=== PATIENT | female | born 2000 | race Caucasian/White ===

== ENCOUNTER 2021-08-01 23:52 | Observation (INO) ==
[2021-08-02] MEDS ORDERED: LORazepam 0.5 MG/1 ML VIAL IV STA ×2 (00:10→06:03)
[2021-08-02] MEDS ORDERED: SODIUM CHLORIDE 0.9% 1000ML 1,000 ML IV ONE (00:10)
[2021-08-02] MEDS ORDERED: FAMOTIDINE 20MG/5ML IV PUSH IV STA (00:10)
[2021-08-02] MEDS ORDERED: ONDANSETRON INJ 2 MG/ML 2 ML VIAL IV STA (00:10)
[2021-08-02] MEDS ORDERED: ACETAMINOPHEN 1,000 MG/100 ML VIAL IV STA (00:10)
--- NOTE | 2021-08-02 00:37 | Emergency Department Note ---
History of Present Illness General Chief complaint: Vomiting Stated complaint: VOMITTING, CANT KEEP ANYTHING DOWN, CROHNS DISEASE Time Seen by Provider: 08/01/21 23:57 Source: patient Mode of arrival: ambulatory Limitations: no limitations History of Present Illness Provider complaint: nausea and vomiting, abdominal pain Onset (ago): day(s) 2 Location: abdomen Radiation: non-radiation Maximum Pain Intensity: 7 Relieved By: + none Exacerbated By: + eating Associated symptoms: + loss of appetite, + malaise and + nausea/vomiting Treatments prior to arrival: none This is a 20-year-old female presents emergency department complaining of nausea and vomiting as well as abdominal pain. Patient states symptoms began on . She states she was seen and evaluated here on the , given medications and sent home. She states she use the Zofran she was given at home and still had continued intermittent vomiting. She states whenever she tries to sip clear liquids or breath, about 10 minutes later she vomits again. Patient denies any blood in the emesis. Patient states she did have a bowel movement today that wa s normal. No melena hematochezia. Patient denies fevers or chills. She admits to increased stress leading up to her symptoms. Denies any dietary change. Patient denies any known sick contact, fevers or chills. Patient states she only takes Bentyl for her Crohn's disease. She states she was originally diagnosed in high school and underwent EGD and colonoscopy. She does not routinely follow-up with GI. She states she also takes several medications for anxiety. She states she no longer has any Bentyl as her prescription had run out. Pt seen during a time of high acuity and national emergency pandemic while wearing PPE. Home Medications Medication Instructions Recorded Confirmed Type dextroamphetamine-amphetamine ER 20 mg PO DAILY PRN 02/21/21 08/02/21 History 20 mg 24hr capsule,extend release gabapentin 100 mg capsule See Rx Instructions .ROUTE .COMPLEX 02/21/21 08/02/21 History albuterol sulfate 90 mcg/actuation 2 inh INHALATION Q6H PRN #8.5 g 04/26/21 08/02/21 Rx aerosol inhaler levonorgestrel (Kyleena) 17.5 mcg INTRAUTERINE CONTINOUS 08/02/21 08/02/21 History venlafaxine 150 mg 150 mg PO DAILY 08/02/21 08/02/21 History capsule,extended release 24 hr venlafaxine 75 mg capsule,extended 75 mg PO DAILY 08/02/21 08/02/21 History release 24 hr ondansetron HCl 4 mg tablet 4 mg PO Q6H PRN 3 Days #10 tab 08/03/21 Rx Allergies Allergy/AdvReac Type Severity Reaction Status Date / Time No Known Allergies Allergy Verified 08/03/21 11:23 Past Med/Surg History Medical History (Updated 08/03/21 @ 11:48 by Zana Lim MD) Crohns disease Encounter for pre-operative examination Surgical History No pertinent past surgical history Family History Other No pertinent family history in first degree relatives Social History Smoking Status: Never smoker Hx Alcohol Use: Yes Alcohol type: beer Hx Substance Use: No Preferred Language: Polish Communication Ability: Effective Spool Cleaner Required: No Beliefs That Will Affect Care: None marital status: Single Current Living Situation: Alone Current Living Situation Comment: Roommate current occupational status: student Feels Safe at Home: Yes Assistive Devices: None Review of Systems A total of 10 systems reviewed and were otherwise negative All systems reviewed & are unremarkable except as noted in HPI & below Physical Exam Vital Signs Vital Signs - 24 hr 08/01/21 23:55 08/02/21 01:55 08/02/21 03:55 Temperature 36.5 C Temperature Source Temporal Artery Scan Pulse Rate 79 Pulse Rate [Finger] 77 81 Respiratory Rate 16 18 18 Respiratory Effort / Characteristics Blood Pressure 108/74 Blood Pressure [Left Arm] 112/67 94/60 L Blood Pressure Mean 85 Blood Pressure Mean [Left Arm] 82 71 Blood Pressure Position Sitting Blood Pressure Position [Left Arm] Sitting Pulse Oximetry 99 99 Oxygen Delivery Method Room Air Room Air Sepsis Recent Fever Within 48 Hours No Sepsis New/Unexplained Change in Mental Status No Sepsis Action Taken by Nursing No Action Required 08/02/21 05:55 08/02/21 07:08 08/02/21 09:00 Temperature Temperature Source Pulse Rate Pulse Rate [Finger] 53 L 58 L 48 L Respiratory Rate 18 16 16 Respiratory Effort / Characteristics Non-Labored Spontaneous Non-Labored Spontaneous Blood Pressure Blood Pressure [Left Arm] 111/63 111/63 Blood Pressure Mean Blood Pressure Mean [Left Arm] 79 79 Blood Pressure Position Blood Pressure Position [Left Arm] Pulse Oximetry 99 98 98 Oxygen Delivery Method Room Air Room Air Room Air Sepsis Recent Fever Within 48 Hours Sepsis New/Unexplained Change in Mental Status Sepsis Action Taken by Nursing GENERAL: alert, anxious appearing, well nourished, no distress, non-toxic, sitting with knees pulled into chest EYE EXAM: normal conjunctiva, PERRL and EOM's grossly intact OROPHARYNX: no exudate, no erythema, lips, buccal mucosa, and tongue normal and mucous membranes are moist NECK: supple, no nuchal rigidity, no adenopathy, non-tender LUNGS: Clear to auscultation. Normal chest wall mechanics, no w/r/r HEART: no murmurs, S1 normal and S2 normal ABDOMEN: abdomen soft, non-tender, normo-active bowel sounds, no masses, no rebound or guarding. BACK: Back is symmetrical on inspection and there is no deformity, no midline tenderness, no CVA tenderness. SKIN: no rashes and no bruising UPPER EXTREMITIES: upper extremities are grossly normal. FROM, nml pulses b/l. LOWER EXTREMITIES: No pitting edema. FROM, nml pulses b/l. NEURO EXAM: Normal sensorium, cranial nerves II-XII grossly intact, normal speech, no gross weakness of arms, no gross weakness of legs. Gross sensation intact. Course Course 0130: Patient states she still feels nauseated and anxious and still having abdominal pain. 0435: Patient states pain is improved but she is still nauseated, however would like to try something by mouth. 0515: Patient had recurrent vomiting. Given additional medication. 0711: Patient states she still nauseated but feels it is secondary to GERD and she feels some burning in her upper abdomen up into her chest. We will try additional medication and then p.o. challenge. 0752: Patient with recurrent vomiting here. I did discuss with her additional imaging at this point given intractable nausea vomiting and need for additional inpatient management. Administered Medications Discontinued Medications Al Hydrox/Mg Hydrox/Simethicone (Aluminum/Magnesium Susp 30 Ml Udc) 15 ml PO NOW STA Stop: 08/02/21 07:00 Last Admin: 08/02/21 07:16 Dose: 15 ml Documented by: [id number] Dicyclomine HCl (Dicyclomine Hcl 10 Mg/Ml 2 Ml Amp/Vial) 20 mg IM NOW ONE Stop: 08/02/21 01:35 Last Admin: 08/02/21 01:48 Dose: 20 mg Documented by: [id number] Diphenhydramine HCl (Diphenhydramine 50 Mg/Ml Vial) 25 mg IV NOW STA Stop: 08/02/21 01:35 Last Admin: 08/02/21 01:47 Dose: 25 mg Documented by: [id number] Famotidine (Famotidine 20mg/5ml Iv Push) 20 mg IV ONE STA Stop: 08/02/21 00:11 Last Admin: 08/02/21 00:30 Dose: 20 mg Documented by: [id number] Hydroxyzine HCl (Hydroxyzine Hcl 10 Mg Tab) 10 mg PO Q6H PRN PRN Reason: Anxiety Stop: 09/01/21 17:23 Last Admin: 08/02/21 23:21 Dose: 10 mg Documented by: [id number] Admin: 08/02/21 18:20 Dose: 10 mg Documented by: [id number] Sodium Chloride (Nss 1000ml) 1,000 mls @ 999 mls/hr IV .Q1H1M ONE Stop: 08/02/21 01:10 Last Infusion: 08/02/21 01:43 Dose: 0 mls/hr Documented by: [id number] Admin: 08/02/21 00:30 Dose: 999 mls/hr Documented by: [id number] Acetaminophen (Ofirmev) 1,000 mg in 100 mls @ 400 mls/hr IV NOW STA Stop: 08/02/21 00:24 Last Infusion: 08/02/21 00:46 Dose: 0 mls/hr Documented by: [id number] Admin: 08/02/21 00:29 Dose: 400 mls/hr Documented by: [id number] Lorazepam (Ativan) 0.5 mg in 1 mls @ 1 mls/min IV NOW STA Stop: 08/02/21 00:11 Last Admin: 08/02/21 00:29 Dose: 1 mls/min Documented by: [id number] Lactated Ringer's (Lr) 1,000 mls @ 999 mls/hr IV .Q1H1M ONE Stop: 08/02/21 02:12 Last Infusion: 08/02/21 03:02 Dose: 0 mls/hr Documented by: [id number] Admin: 08/02/21 01:48 Dose: 999 mls/hr Documented by: [id number] Lorazepam (Ativan) 0.5 mg in 1 mls @ 1 mls/min IV NOW STA Stop: 08/02/21 06:04 Last Admin: 08/02/21 06:35 Dose: 1 mls/min Documented by: [id number] Dextrose/Sodium Chloride (D5w And 1/2nss) 1,000 mls @ 100 mls/hr IV .Q10H JOSE Stop: 09/01/21 08:44 Last Infusion: 08/03/21 13:12 Dose: 0 mls/hr Documented by: [id number] Infusion: 08/03/21 11:15 Dose: 0 mls/hr Documented by: [id number] Admin: 08/03/21 01:56 Dose: 100 mls/hr Documented by: [id number] Infusion: 08/03/21 01:56 Dose: 0 mls/hr Documented by: [id number] Admin: 08/02/21 17:23 Dose: 100 mls/hr Documented by: [id number] Infusion: 08/02/21 16:13 Dose: 0 mls/hr Documented by: [id number] Admin: 08/02/21 09:07 Dose: 125 mls/hr Documented by: [id number] Pantoprazole Sodium 40 mg/ (Syringe) 10 mls @ 5 mls/min IV BID JOSE Stop: 09/01/21 20:59 Last Admin: 08/03/21 08:30 Dose: 5 mls/min Documented by: [id number] Admin: 08/02/21 23:22 Dose: 5 mls/min Documented by: [id number] Ioversol (Optiray 320 100ml) 94 ml IV ONCE ONE Stop: 08/02/21 08:18 Last Admin: 08/02/21 08:18 Dose: 94 ml Documented by: [id number] Lidocaine HCl (Lidocaine 2% 2 Ml Vial/Amp(20mg/Ml)) Confirm Administered Dose 4 ml INFIL .STK-MED ONE Stop: 08/03/21 11:48 Last Admin: 08/03/21 13:12 Dose: Not Given Documented by: [id number] Metoclopramide HCl (Metoclopramide Hcl Inj 5 Mg/Ml 2 Ml Vial) 5 mg IV ONE ONE Stop: 08/02/21 01:35 Last Admin: 08/02/21 01:48 Dose: 5 mg Documented by: [id number] Metoclopramide HCl (Metoclopramide Hcl Inj 5 Mg/Ml 2 Ml Vial) 5 mg IV ONE ONE Stop: 08/02/21 07:54 Last Admin: 08/02/21 08:04 Dose: 5 mg Documented by: [id number] Metoclopramide HCl (Metoclopramide Hcl Inj 5 Mg/Ml 2 Ml Vial) 5 mg IV Q6H PRN PRN Reason: Vomiting Stop: 09/01/21 10:29 Last Admin: 08/02/21 23:22 Dose: 5 mg Documented by: [id number] Admin: 08/02/21 18:49 Dose: 5 mg Documented by: [id number] Midazolam HCl (Midazolam Hcl 1 Mg/Ml 2ml Vial) Confirm Administered Dose 2 mg .ROUTE .STYurbuds-MED ONE Stop: 08/03/21 11:54 Last Admin: 08/03/21 13:12 Dose: Not Given Documented by: [id number] Ondansetron HCl (Ondansetron Inj 2 Mg/Ml 2 Ml Vial) 4 mg IV NOW STA Stop: 08/02/21 00:11 Last Admin: 08/02/21 00:29 Dose: 4 mg Documented by: [id number] Ondansetron HCl (Ondansetron Inj 2 Mg/Ml 2 Ml Vial) 4 mg IV Q6H PRN PRN Reason: Nausea Stop: 09/01/21 10:11 Last Admin: 08/02/21 22:25 Dose: 4 mg Documented by: [id number] Admin: 08/02/21 16:13 Dose: 4 mg Documented by: [id number] Propofol (Propofol Iv Emulsion 10 Mg/Ml 20 Ml Vial) Confirm Administered Dose 200 mg IV .STK-MED ONE Stop: 08/03/21 11:48 Last Admin: 08/03/21 13:12 Dose: Not Given Documented by: [id number] Venlafaxine HCl (Venlafaxine Hcl Xr 75 Mg Capxr) 75 mg PO DAILY OJSE Stop: 09/02/21 08:59 Last Admin: 08/03/21 13:06 Dose: 75 mg Documented by: [id number] Venlafaxine HCl (Venlafaxine Hcl Xr 150 Mg Capxr) 150 mg PO DAILY JOSE Stop: 09/02/21 08:59 Last Admin: 08/03/21 13:06 Dose: 150 mg Documented by: [id number] Medical Decision Making Differential Diagnosis Differential: Gastroenteritis, Food Borne, Esophageal Perforation, , Electrolyte Abnormality, Dehydration, Intraabdominal Infection, UTI/Pyelonephritis, Bowel Obstruction, Biliary Pathology, amongst other pathology entertained. Medical Records Attestation: I reviewed the patient's medical records. Home Medications Current Medication List: was personally reviewed by me Laboratory Data Attestation: I reviewed the patient's lab results. Result diagrams: 08/03/21 05:36 08/03/21 05:36 Lab Results 08/02/21 08/02/21 08/02/21 Range/Units 00:40 00:40 00:40 WBC 6.41 (4.8-10.8) K/uL RBC 4.42 (4.2-5.4) M/uL Hgb 14.5 (12.0-16.0) g/dL Hct 43.3 (37-47) % MCV 98.0 (80-100) fL MCH 32.8 (25-34) pg MCHC 33.5 (32-36) g/dL RDW Std Deviation 44.7 (36.4-46.3) fL RDW Coeff of Brigitte 12.4 (11.5-14.5) % Plt Count 247 (130-400) K/uL MPV 10.9 H (7.4-10.4) fL Immature Gran % (Auto) 0.0 % Neut % (Auto) 50.8 % Lymph % (Auto) 41.2 % Dade % (Auto) 5.0 % Eos % (Auto) 2.8 % Baso % (Auto) 0.2 % Neut # (Auto) 3.26 (1.4-6.5) K/uL Lymph # (Auto) 2.64 (1.2-3.4) K/uL Dade # (Auto) 0.32 (0.11-0.59) K/uL Eos # (Auto) 0.18 (0-0.5) K/uL Baso # (Auto) 0.01 (0-0.2) K/uL Immature Gran # (Auto) 0.00 (0.00-0.02) K/uL ESR (0-20) mm/hr Sodium 138 (136-145) mmol/L Potassium 3.8 (3.5-5.1) mmol/L Chloride 106 (98-107) mmol/L Carbon Dioxide 23 (21-32) mmol/L Anion Gap 9 (3-11) BUN 5 L (6-23) mg/dl Creatinine 0.69 (0.6-1.2) mg/dl Est Cr Clr Drug Dosing 118.1 ml/min Est GFR ( Amer) 145.2 ml/min Est GFR (Non-Af Amer) 125.3 ml/min BUN/Creatinine Ratio 7.2 L (10-20) Glucose 87 (70-99(Fasting)) mg/dl Calcium 9.4 (8.5-10.1) mg/dl Magnesium 2.3 (1.7-2.4) mg/dl Total Bilirubin 0.9 D (0.2-1.0) mg/dl AST 19 (13-39) U/L ALT 12 (7-52) U/L Alkaline Phosphatase 59 (34-104) U/L C-Reactive Protein (0-0.5) mg/dl Total Protein 7.1 (6.0-8.3) gm/dl Albumin 4.6 (3.4-5.0) gm/dl Globulin 2.5 (2.5-4.0) gm/dl Albumin/Globulin Ratio 1.8 (0.9-2) Lipase 12 (11-82) U/L HCG, Qual Negative (Negative) 08/02/21 08/02/21 Range/Units 00:40 00:40 WBC (4.8-10.8) K/uL RBC (4.2-5.4) M/uL Hgb (12.0-16.0) g/dL Hct (37-47) % MCV (80-100) fL MCH (25-34) pg MCHC (32-36) g/dL RDW Std Deviation (36.4-46.3) fL RDW Coeff of Brigitte (11.5-14.5) % Plt Count (130-400) K/uL MPV (7.4-10.4) fL Immature Gran % (Auto) % Neut % (Auto) % Lymph % (Auto) % Dade % (Auto) % Eos % (Auto) % Baso % (Auto) % Neut # (Auto) (1.4-6.5) K/uL Lymph # (Auto) (1.2-3.4) K/uL Dade # (Auto) (0.11-0.59) K/uL Eos # (Auto) (0-0.5) K/uL Baso # (Auto) (0-0.2) K/uL Immature Gran # (Auto) (0.00-0.02) K/uL ESR 8 (0-20) mm/hr Sodium (136-145) mmol/L Potassium (3.5-5.1) mmol/L Chloride (98-107) mmol/L Carbon Dioxide (21-32) mmol/L Anion Gap (3-11) BUN (6-23) mg/dl Creatinine (0.6-1.2) mg/dl Est Cr Clr Drug Dosing ml/min Est GFR ( Amer) ml/min Est GFR (Non-Af Amer) ml/min BUN/Creatinine Ratio (10-20) Glucose (70-99(Fasting)) mg/dl Calcium (8.5-10.1) mg/dl Magnesium (1.7-2.4) mg/dl Total Bilirubin (0.2-1.0) mg/dl AST (13-39) U/L ALT (7-52) U/L Alkaline Phosphatase (34-104) U/L C-Reactive Protein < 0.50 (0-0.5) mg/dl Total Protein (6.0-8.3) gm/dl Albumin (3.4-5.0) gm/dl Globulin (2.5-4.0) gm/dl Albumin/Globulin Ratio (0.9-2) Lipase (11-82) U/L HCG, Qual (Negative) Imaging Data Radiologist's Impression: Abdomen/Pelvis CT 08/02/21 07:[address] WITH IV CONTRAST CT DOSE: 269.02 mGy.cm HISTORY: Acute nausea with vomiting intractable n/v TECHNIQUE: Multiaxial CT images of the abdomen and pelvis were performed f ollowing the IV administration of 94 cc of Optiray, A dose lowering technique was utilized adhering to the principles of ALARA. COMPARISON STUDY: CT abdomen and pelvis 07/31/2021 FINDINGS: Pectus excavatum causes mass effect upon the heart. Clear lung bases. No pneumatosis or pneumoperitoneum. The spleen, pancreas, gallbladder, adrenal glands and liver appear unremarkable. Patency of the hepatic and portal veins. Unremarkable kidneys. No hydronephrosis. Moderate bladder wall thickening with perivesicular stranding. IUD of the mid uterus. Follicular changes of the ovaries. Small to moderate free pelvic fluid. 1.6 cm peripherally enhancing cy stic structure is noted involving the left aspect of the vaginal introitus. Aorta and IVC are unremarkable. No adenopathy No bowel obstruction. The appendix appears noninflamed. No bowel wall thickening. Unremarkable soft tissues. Tiny posterior disc osteophyte complex at L5-S1. Mild lumbar levoscoliosis. There is no acute fracture. IMPRESSION: 1. No bowel obstruction or bowel wall thickening. Normal appendix. 2. Urinary bladder wall thickening with perivesicular stranding. Correlate with urinalysis to exclude cystitis. 3. 1.6 cm cystic structure involving the left aspect of the vaginal introitus is suggestive of a Bartholin's gland cyst. 4. Small to moderate free pelvic fluid, likely physiologic. ACT 112: Negative or not required by law. The above report was generated using voice recognition software. It may contain grammatical, syntax or spelling errors. Electronically signed by: Woody Licona M.D. 08/02/2021 8:40 AM MDM Narrative An order was placed for continuous cardiac monitoring. The monitor shows a rate of _92_ with _nsr_ rhythm. Patient has no family history of IBD. Patient was first seen and observation began at 2357 and was necessary in order to determine etiology of symptoms and treat nausea with multiple medications. Upon re-evaluation, 7 hours of observation revealed that the patient should be admitted. Discharge time at 0722. Patient presents with recurrent n/v after being evaluated here prior and discharged. Patient very anxious which I feel was contributing to her symptoms but does have a hx of IBS/Crohn's which is mild and well controlled. No immunomodulating medications, prn bentyl. Patient afebrile, VS stable. Labs reassuring. Patient given 2 L IVF and multiple medications for nausea and with each po trial patient had recurrent vomiting. Abd pain resolved with bentyl. Patient eventually sent for CT imaging which was reassuring. Case discussed with hospitalist due to intractable vomiting. Patient didn't provide urine while in the ER to r/o cannabis induced hyperemesis. I do not suspect Crohns flare. NO other evidence of acute pathology. Impression & Plan Nausea & vomiting, Abdominal pain, acute Discharge Plan Visit Data Chief Complaint: Vomiting Stated Complaint: VOMITTING, CANT KEEP ANYTHING DOWN, CROHNS DISEASE ED Provider: Leatha Gonzales Discharge Problem: Nausea & vomiting, Abdominal pain, acute Patient Disposition: Admitted As Inpatient Discharge Instructions Interventions: ED Discharge Assessment Last Done: 08/02/21 11:33 Discharge Problem: Nausea & vomiting Qualifiers: Vomiting type: unspecified Qualified Code(s): R11.2 - Nausea with vomiting, unspecified
[2021-08-02 00:48] LABS: Basophils # (auto) 0.01 K/uL (0-0.2); Basophils % (auto) 0.2 %; Eosinophils # (auto) 0.18 K/uL (0-0.5); Eosinophils % (auto) 2.8 %; Hematocrit (blood only) 43.3 % (37-47); Hemoglobin 14.5 g/dL (12.0-16.0); Lymphocytes # (auto) 2.64 K/uL (1.2-3.4); Lymphocytes % (auto) 41.2 %; Mean Corpuscular Hemoglobin 32.8 pg (25-34); Mean Corpuscular Hgb Conc 33.5 g/dL (32-36); Mean Platelet Volume 10.9 fL (7.4-10.4); Monocytes # (auto) 0.32 K/uL (0.11-0.59); Neutrophils # (auto) 3.26 K/uL (1.4-6.5); Neutrophils % (auto) 50.8 %; Platelet Count 247 K/uL (130-400); RDW Coefficient of Variation 12.4 % (11.5-14.5); RDW Standard Deviation 44.7 fL (36.4-46.3); Red Blood Count 4.42 M/uL (4.2-5.4); White Blood Count 6.41 K/uL (4.8-10.8)
[2021-08-02 01:10] LABS: Albumin Globulin Ratio 1.8 (0.9-2); Albumin Level 4.6 gm/dl (3.4-5.0); BUN Creatinine Ratio 7.2 (10-20); Bilirubin,Total 0.9 mg/dl (0.2-1.0); Calcium 9.4 mg/dl (8.5-10.1); Creatinine Clr Calc Pharmacy 118.1 ml/min; Est GFR (African American) 145.2 ml/min; Est GFR (Non-African American) 125.3 ml/min; Globulin 2.5 gm/dl (2.5-4.0); Magnesium 2.3 mg/dl (1.7-2.4); Potassium 3.8 mmol/L (3.5-5.1); Total Protein 7.1 gm/dl (6.0-8.3)
[2021-08-02] MEDS ORDERED: LACTATED RINGER'S 1,000 ML IV ONE (01:12)
[2021-08-02 01:17] LABS: Pregnancy Test, Serum Negative (Negative)
[2021-08-02] MEDS ORDERED: diphenhydrAMINE 50 MG/ML VIAL IV STA (01:34)
[2021-08-02] MEDS ORDERED: METOCLOPRAMIDE HCL INJ 5 MG/ML 2 ML VIAL IV ONE ×2 (01:34→07:53)
[2021-08-02] MEDS ORDERED: DICYCLOMINE HCL 10 MG/ML 2 ML AMP/VIAL IM ONE (01:34)
[2021-08-02] MEDS ORDERED: ALUMINUM/MAGNESIUM SUSP 30 ML UDC PO STA (06:59)
[2021-08-02] MEDS ORDERED: OPTIRAY 320 100ml IV ONE (08:17)
--- NOTE | 2021-08-02 08:42 | CT Scan Report ---
ABDOMEN AND PELVIS CT WITH IV CONTRAST CT DOSE: 269.02 mGy.cm HISTORY: Acute nausea with vomiting intractable n/v TECHNIQUE: Multiaxial CT images of the abdomen and pelvis were performed following the IV administrat ion of 94 cc of Optiray, A dose lowering technique was utilized adhering to the principles of ALARA. COMPARISON STUDY: CT abdomen and pelvis 07/31/2021 FINDINGS: Pectus excavatum causes mass effect upon the heart. Clear lung bases. No pneumatosis or pne umoperitoneum. The spleen, pancreas, gallbladder, adrenal glands and liver appear unremarkable. Paten cy of the hepatic and portal veins. Unremarkable kidneys. No hydronephrosis. Moderate bladder wall th ickening with perivesicular stranding. IUD of the mid uterus. Follicular changes of the ovaries. Smal l to moderate free pelvic fluid. 1.6 cm peripherally enhancing cystic structure is noted involving th e left aspect of the vaginal introitus. Aorta and IVC are unremarkable. No adenopathy No bowel obstruction. The appendix appears noninflamed. No bowel wall thickening. Unremarkable soft t issues. Tiny posterior disc osteophyte complex at L5-S1. Mild lumbar levoscoliosis. There is no acute fracture. IMPRESSION: 1. No bowel obstruction or bowel wall thickening. Normal appendix. 2. Urinary bladder wall thickening with perivesicular stranding. Correlate with urinalysis to exclude cystitis. 3. 1.6 cm cystic structure involving the left aspect of the vaginal introitus is suggestive of a Bill holin's gland cyst. 4. Small to moderate free pelvic fluid, likely physiologic. ACT 112: Negative or not required by law. The above report was generated using voice recognition software. It may contain grammatical, syntax o r spelling errors. Electronically signed by: Woody Licona M.D. 08/02/2021 8:40 AM
[2021-08-02] MEDS: D5W AND 1/2NSS 1,000 ML IV SCH ×2 (09:07→17:23)
[2021-08-02] MEDS ORDERED: MAGNESIUM HYDROXIDE SUSP 30 ML UDC PO PRN (10:12)
[2021-08-02] MEDS ORDERED: ALUMINUM/MAGNESIUM SUSP 30 ML UDC PO PRN (10:12)
[2021-08-02] MEDS ORDERED: ACETAMINOPHEN 325 MG TAB PO PRN (10:12)
[2021-08-02] MEDS ORDERED: POLYETHYLENE (MIRALAX) 17 GM PACK PO PRN (10:12)
--- NOTE | 2021-08-02 10:30 | Medical Student H&P ---
Date of Service August 02, 2021 Assessment & Plan (1) Nausea & vomiting: Plan: This is a 20 year old female with a history of Crohn's disease presenting for evaluation of a 4-day history of intractable vomiting in the setting of recent weight loss. Vomiting - Crohn's flare vs viral gastroenteritis - mIVF (D5 in 1/2 NSS) - nausea and pain control: tylenol, zofran, metoclopramide PRN - CT abdomen unremarkable except for urinary wall thickening with perivesicular stranding, WBC normal, CRP and ESR wnl, UA: pH 8, high specific gravity, negative nitrites, 2+ leuk esterase, WBC > 30, epithelial cells > 30, urine cx pending, but no urinary symptoms - negative HCG, UDS negative - GI consulted: protonix 40 mg BID, planning for EGD tomorrow, liquid diet today and NPO after midnight, requesting records from previous GI work-up FEN/GI: D5 in 1/2NSS at 100 mL/hr, clear fluids Dispo: med/surg Code status: full code DVT Prophylaxis: not indicated Vomiting type: unspecified Qualified Code(s): R11.2 - Nausea with vomiting, unspecified (2) Abdominal pain, acute: (3) History of Crohn's disease: Admission and Anticipated Discharge Date Admission Date: 08/02/2021 History of Present Illness Chief Complaint: Throwing up since Primary Care Provider: [facility] Patient is a 20 year old female with a history of Crohn's disease who presents for a 2-3 week history of progressively worsening nausea and vomiting who has not been able to keep any food or drink down for the last 4 days. She presented to the ED on Monday 07/31 with abdominal pain and nausea that improved to the point that she could tolerate clear liquids. She was discharged on zofran with instructions to advance her diet as tolerate but returned because the vomiting worsened again and she could keep down neither zofran nor food.The vomit sometimes has bright red blood in it, and she endorses throat pain. She has also been having intermittent abdominal pain. She says that her bowel movements have been normal in frequency and consistency. She has lost about 15 pounds in the last two weeks and attributes it to poor PO intake because of the vomiting. She has not had a Crohn's flare up for about 4 years but says that this is consistent with those flare-ups. Shay says that she was first diagnosed with Crohn's in high school after several long hospitalizations. She does not follow with GI and is prescribed only Bentyl, which her PCP manages. She last saw her PCP last summer and says that she has not been taking the Bentyl recently. She says that she does not thinks she's ever taken any other medications like steroids or mesalamine but is not sure because her mother managed her care when she was first diagnosed as a teenager. Denies fevers, chills, back pain, urinary symptoms. Denies recent travel or sick contacts. Denies recent marijuana usage (per patient, last usage was 3 years ago). Patient is a premed college oli and endorses having a lot of stress in her life. Allergies Allergy/AdvReac Type Severity Reaction Status Date / Time No Known Allergies Allergy Verified 08/02/21 00:32 Home Medications Medication Instructions Recorded Confirmed Type dextroamphetamine-amphetamine ER 20 mg PO DAILY PRN 02/21/21 08/02/21 History 20 mg 24hr capsule,extend release gabapentin 100 mg capsule See Rx Instructions .ROUTE .COMPLEX 02/21/21 08/02/21 History albuterol sulfate 90 mcg/actuation 2 inh INHALATION Q6H PRN #8.5 g 04/26/21 08/02/21 Rx aerosol inhaler levonorgestrel (Kyleena) 17.5 mcg INTRAUTERINE CONTINOUS 08/02/21 08/02/21 Hi story venlafaxine 150 mg 150 mg PO DAILY 08/02/21 08/02/21 History capsule,extended release 24 hr venlafaxine 75 mg capsule,extended 75 mg PO DAILY 08/02/21 08/02/21 History release 24 hr Past Med/Surg History Medical History Crohns disease Surgical History No pertinent past surgical history Family History Other No pertinent family history in first degree relatives Social History Smoking Status: Never smoker Preferred Language: [place] marital status: Single Current Living Situation: Other Current Living Situation Comment: Roommate current occupational status: student Feels Safe at Home: Yes Review of Systems per HPI Physical Exam Constitutional: no acute distress Eyes: PERRL, conjunctivae normal, anicteric sclerae ENMT: external ear and nose normal, oropharynx normal Mouth: + dry oral mucous membranes Neck: trachea midline, no thyromegaly Respiratory: normal respiratory effort, lungs clear to auscultation Cardiovascular: RRR, no murmur, no edema Gastrointestinal (Abdomen): Inspection/Auscultation: + hypoactive bowel sounds; abdomen not distended Percussion/Palpation: + abdomen tender (diffusely tender), + guarding (voluntary) and abdomen soft no rebound tenderness, no peritoneal signs, no CVA tenderness Psychiatric: A+Ox3, euthymic affect Results & Data ([facility]) Vital Signs (Past 12 Hours) Vital Signs Temp Pulse Pulse Resp BP BP Pulse Ox 08/02/21 09:00 48 L 16 98 08/02/21 07:08 58 L 16 111/63 98 08/02/21 05:55 53 L 18 111/63 99 08/02/21 03:55 81 18 94/60 L 99 08/02/21 01:55 77 18 112/67 08/01/21 23:55 36.5 C 79 16 108/74 99 Laboratory Results 08/02/21 08/02/21 08/02/21 Range/Units Unknown 00:40 00:40 WBC (4.8-10.8) K/uL RBC (4.2-5.4) M/uL Hgb (12.0-16.0) g/dL Hct (37-47) % MCV (80-100) fL MCH (25-34) pg MCHC (32-36) g/dL RDW Std Deviation (36.4-46.3) fL RDW Coeff of Brigitte (11.5-14.5) % Plt Count (130-400) K/uL MPV (7.4-10.4) fL Immature Gran % (Auto) % Neut % (Auto) % Lymph % (Auto) % [place] % (Auto) % Eos % (Auto) % Baso % (Auto) % Neut # (Auto) (1.4-6.5) K/uL Lymph # (Auto) (1.2-3.4) K/uL [place] # (Auto) (0.11-0.59) K/uL Eos # (Auto) (0-0.5) K/uL Baso # (Auto) (0-0.2) K/uL Immature Gran # (Auto) (0.00-0.02) K/uL ESR 8 (0-20) mm/hr Sodium (136-145) mmol/L Potassium (3.5-5.1) mmol/L Chloride (98-107) mmol/L Carbon Dioxide (21-32) mmol/L Anion Gap (3-11) BUN (6-23) mg/dl Creatinine (0.6-1.2) mg/dl Est Cr Clr Drug Dosing ml/min Est GFR ( Amer) ml/min Est GFR (Non-Af Amer) ml/min BUN/Creatinine Ratio (10-20) Glucose (70-99(Fasting)) mg/dl Calcium (8.5-10.1) mg/dl Magnesium (1.7-2.4) mg/dl Total Bilirubin (0.2-1.0) mg/dl AST (13-39) U/L ALT (7-52) U/L Alkaline Phosphatase (34-104) U/L C-Reactive Protein < 0.50 (0-0.5) mg/dl Total Protein (6.0-8.3) gm/dl Albumin (3.4-5.0) gm/dl Globulin (2.5-4.0) gm/dl Albumin/Globulin Ratio (0.9-2) Lipase (11-82) U/L HCG, Qual (Negative) SARS-CoV-2, RNA, NAAT NEGATIVE (NEGATIVE) 08/02/21 08/02/21 08/02/21 Range/Units 00:40 00:40 00:40 WBC 6.41 (4.8-10.8) K/uL RBC 4.42 (4.2-5.4) M/uL Hgb 14.5 (12.0-16.0) g/dL Hct 43.3 (37-47) % MCV 98.0 (80-100) fL MCH 32.8 (25-34) pg MCHC 33.5 (32-36) g/dL RDW Std Deviation 44.7 (36.4-46.3) fL RDW Coeff of Brigitte 12.4 (11.5-14.5) % Plt Count 247 (130-400) K/uL MPV 10.9 H (7.4-10.4) fL Immature Gran % (Auto) 0.0 % Neut % (Auto) 50.8 % Lymph % (Auto) 41.2 % [place] % (Auto) 5.0 % Eos % (Auto) 2.8 % Baso % (Auto) 0.2 % Neut # (Auto) 3.26 (1.4-6.5) K/uL Lymph # (Auto) 2.64 (1.2-3.4) K/uL [place] # (Auto) 0.32 (0.11-0.59) K/uL Eos # (Auto) 0.18 (0-0.5) K/uL Baso # (Auto) 0.01 (0-0.2) K/uL Immature Gran # (Auto) 0.00 (0.00-0.02) K/uL ESR (0-20) mm/hr Sodium 138 (136-145) mmol/L Potassium 3.8 (3.5-5.1) mmol/L Chloride 106 (98-107) mmol/L Carbon Dioxide 23 (21-32) mmol/L Anion Gap 9 (3-11) BUN 5 L (6-23) mg/dl Creatinine 0.69 (0.6-1.2) mg/dl Est Cr Clr Drug Dosing 118.1 ml/min Est GFR ( Amer) 145.2 ml/min Est GFR (Non-Af Amer) 125.3 ml/min BUN/Creatinine Ratio 7.2 L (10-20) Glucose 87 (70-99(Fasting)) mg/dl Calcium 9.4 (8.5-10.1) mg/dl Magnesium 2.3 (1.7-2.4) mg/dl Total Bilirubin 0.9 D (0.2-1.0) mg/dl AST 19 (13-39) U/L ALT 12 (7-52) U/L Alkaline Phosphatase 59 (34-104) U/L C-Reactive Protein (0-0.5) mg/dl Total Protein 7.1 (6.0-8.3) gm/dl Albumin 4.6 (3.4-5.0) gm/dl Globulin 2.5 (2.5-4.0) gm/dl Albumin/Globulin Ratio 1.8 (0.9-2) Lipase 12 (11-82) U/L HCG, Qual Negative (Negative) SARS-CoV-2, RNA, NAAT (NEGATIVE) Diagnostic Findings Abdomen/Pelvis CT 08/02/21 07:[address] WITH IV CONTRAST CT DOSE: 269.02 mGy.cm HISTORY: Acute nausea with vomiting intractable n/v TECHNIQUE: Multiaxial CT images of the abdomen and pelvis were performed following the IV administration of 94 cc of Optiray, A dose lowering technique was utilized adhering to the principles of ALARA. COMPARISON STUDY: CT abdomen and pelvis 07/31/2021 FINDINGS: Pectus excavatum causes mass effect upon the heart. Clear lung bases. No pneumatosis or pneumoperitoneum. The spleen, pancreas, gallbladder, adrenal glands and liver appear unremarkable. Patency of the hepatic and portal veins. Unremarkable kidneys. No hydronephrosis. Moderate bladder wall thickening with perivesicular stranding. IUD of the mid uterus. Follicular changes of the ovaries. Small to moderate free pelvic fluid. 1.6 cm peripherally enhancing cystic structure is noted involving the left aspect of the vaginal introitus. Aorta and IVC are unremarkable. No adenopathy No bowel obstruction. The appendix appears noninflamed. No bowel wall thickening. Unremarkable soft tissues. Tiny posterior disc osteophyte complex at L5-S1. Mild lumbar levoscoliosis. There is no acute fracture. IMPRESSION: 1. No bowel obstruction or bowel wall thickening. Normal appendix. 2. Urinary bladder wall thickening with perivesicular stranding. Correlate with urinalysis to exclude cystitis. 3. 1.6 cm cystic structure involving the left aspect of the vaginal introitus is suggestive of a Bartholin's gland cyst. 4. Small to moderate free pelvic fluid, likely physiologic. ACT 112: Negative or not required by law. The above report was generated using voice recognition software. It may contain grammatical, syntax or spelling errors. Electronically signed by: Woody Licona M.D. 08/02/2021 8:40 AM Code Status & VTE Plan Code Status Full code VTE Prophylaxis Plan VTE Prophylaxis will be ordered: No Reason for no VTE drug order: Treatment not indicated Reason for no VTE mechanical prophylaxis: Treatment not indicated Supervising Attestation I also saw the patient concurrent with the resident physician and the medical student and confirmed clements portions of the history and the physical examination. Pleasant 20-year-old female with reported history of Crohn's diagnosed in high school presents to the emergency department with an approximately 2-week history of progressive nausea and vomiting accounting for a 15 pound weight loss. The patient does not recall the details of her diagnostic work-up which led to the diagnosis of Crohn's -she does not recall having a colonoscopy but does describe an upper endoscopy-and she is on no medications currently for Crohn's. The p jm does report being on Bentyl previously but she has not taken this for nearly 2 years. 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 She is currently a [employer] student and the diagnosis of previous work-up was completed in [facility]. She was initially seen here in the emergency department and discharged on July 31. She returned today as her symptoms continued. She states that the upper GI symptoms have been consistent with her previous flares; she also notes some recent constipation. Since her emergency department evaluation, she has been able to tolerate some clear fluids without vomiting. Exam 107/61, 54, 14, 36.5, 98% on room air She is sleeping but easily awakens to my voice No appreciable distress Heart is regular mildly bradycardic Respirations are nonlabored Abdomen with tenderness in the epigastric area and the bilateral lower quadrants, no rebound. She does have some anticipatory voluntary "guarding" during the exam. Data WBC 6.41, hemoglobin 14.5, platelet count 247 Sodium 138, potassium 3.8, BUN 5, creatinine 0.69 ALT T12, AST 19, alkaline phosphatase 59 Lipase 12 CRP less than 0.50 Urinalysis shows specific gravity greater than 1.045, 2+ leuk esterase, greater than 30 WBC, greater than 30 epithelial cells Urine cultures pending COVID-19 negative Urine toxicology drug screen negative Urine test is negative CT of the abdomen and pelvis with IV contrast shows no bowel obstruction or bowel wall thickening. Urinary bladder wall thickening with perivesicular stranding is noted. Impression and Plan Nausea and vomiting Reported history of Crohn's IV fluids Zofran PPI Consult gastroenterology Will try to obtain records from outside hospital with regards to previous work-up Await urine culture Resident Activity Tracking Resident Involvement: Resident Care Provided Care Provided: Adult Hospital Medicine
[2021-08-02 11:29] LABS: Appearance Urine Clear (Clear); Bacteria Urine Automated 1+ (Negative); Bilirubin Urine Negative (Negative); Blood Urine Negative (Negative); Cast Urine Automated 0 /lpf (0-5); Color Urine Yellow; Epithelial Cell Urine Auto >30 /lpf (0-5); Glucose Urine UA Negative (Negative); Ketones Urine Negative (Negative); Leukocyte Esterase Urine 2+ (Negative); Nitrite Urine Negative (Negative); Protein Urine Negative (Negative); RBC Urine Automated 0-4 /hpf (0-4); Specific Gravity Urine > 1.045 (1.000-1.030); Urobilinogen Urine Negative (Negative); WBC Urine Automated >30 /hpf (0-5)
[2021-08-02] MEDS ORDERED: ALBUTEROL HFA 8 GM INHALER INH PRN (11:31)
[2021-08-02 12:16] LABS: Amphetamines+Metham, Urine Neg (Neg); Barbiturates, Urine Neg (Neg); Benzodiazepine, Urine Neg (Neg); Cocaine, Urine Neg (Neg); MDMA (Ecstacy), Urine Neg (Neg); Methadone, Urine Neg (Neg); Opiate, Urine Neg (Neg); Phencyclidine, Urine Neg (Neg)
--- NOTE | 2021-08-02 13:06 | Gastrointestinal Consultation ---
Date of Consultation August 02, 2021 Assessment & Plan (1) Nausea & vomiting: -Continue anti-emetics as prescribed. -Liquid diet today; keep NPO after midnight. -Can do EGD tomorrow to exclude upper GI pathology. -Would ask that records be obtained from her previous GI work-up as it is unu sual that she reportedly has a diagnosis of Crohn's Disease and is not on any therapy. She currently has no changes in her bowel habits. If records warrant colonoscopy, would ideally opt to do that as outpatient once acute n/v is managed. -Protonix 40 mg BID for now. Supervising Physician Co-Signing Physician Notes Agree with PABLO Romero as above Abd: Soft, Tender throughout, ND, +BS Continue PPI therapy now EGD tomorrow Obtain records from prior GI workup History of Present Illness Reason for Consultation: Nausea & vomiting Attending Physician: Claus Hayes DO History of Present Illness Patient is a 20 yo female who is currently being admitted to [facility] due to "intractable nausea & vomiting." She has presented to the ED multiple times for this issue. She reports an inability to keep food down without vomiting. She notes that she has lost 15 lbs in 1 week. She reports that she has been unable to take dissolvable Zofran without nausea & vomiting as well. No pertinent family history. Urine hcg negative. CT scan of the abdomen/pelvis unremarkable for acute GI issues. Family history non-contributory. CBC, CMP, amylase, lipase unremarkable from GI perspective. Patient notes a diagnosis of Crohn's Disease as a teenager. She reports she thinks this diagnosis was made in [place], but is not currently on any treatment for IBD. She reportedly takes Bentyl as prescribed by her PCP. Patient reports normal bowel movements at present. hcg negative. No marijuana use for 3 years. Patient is accompanied in the ED by her boyfriend. Allergies Allergy/AdvReac Type Severity Reaction Status Date / Time No Known Allergies Allergy Verified 08/02/21 00:32 Home Medications Medication Instructions Recorded Confirmed Type dextroamphetamine-amphetamine ER 20 mg PO DAILY PRN 02/21/21 08/02/21 History 20 mg 24hr capsule,extend release gabapentin 100 mg capsule See Rx Instructions .ROUTE .COMPLEX 02/21/21 08/02/21 History albuterol sulfate 90 mcg/actuation 2 inh INHALATION Q6H PRN #8.5 g 11/15/21 02/21/22 Rx aerosol inhaler levonorgestrel (Kyleena) 17.5 mcg INTRAUTERINE CONTINOUS 08/02/21 08/02/21 History venlafaxine 150 mg 150 mg PO DAILY 08/02/21 08/02/21 History capsule,extended release 24 hr venlafaxine 75 mg capsule,extended 75 mg PO DAILY 08/02/21 08/02/21 History release 24 hr Patient History Medical History Crohns disease Surgical History No pertinent past surgical history Family History Other No pertinent family history in first degree relatives Social History Smoking Status: Never smoker Preferred Language: Romanian marital status: Single Current Living Situation: Other Current Living Situation Comment: Roommate current occupational status: student Feels Safe at Home: Yes Review of Systems Constitutional: + weight loss Respiratory: no cough and no dyspnea Cardiovascular: no chest pain Gastrointestinal: + abdominal pain, + nausea and + vomiting Musculoskeletal: no problem reported Neurologic: no problem reported Psychiatric: stress Physical Exam Constitutional: well developed (non-toxic appearing) Respiratory: normal respiratory effort Gastrointestinal (Abdomen): Inspection/Auscultation: abdomen normal to inspection; abdomen not distended Percussion/Palpation: + abdomen tender, + guarding and abdomen soft Musculoskeletal: Head/Neck/Chest: normocephalic Psychiatric: Orientation: alert and oriented x 3 Results & Data ([facility]) Vital Signs (Past 12 Hours) Vital Signs Pulse Resp BP Pulse Ox 08/02/21 11:55 54 L 08/02/21 11:13 42 L 14 107/61 98 08/02/21 09:00 48 L 16 98 08/02/21 07:08 58 L 16 111/63 98 08/02/21 05:55 53 L 18 111/63 99 08/02/21 03:55 81 18 94/60 L 99 08/02/21 01:55 77 18 112/67 PG Care Time/CCT Total # of Minutes Spent Total Time Spent with Patient: Total time spent is greater than 50% in coordination of care (as documented) at patient's floor/unit and/or counseling patient: Coding Level of Care Code 06810 Inpt Consult Level 4 Diagnoses Nausea & vomiting R11.2 Vomiting type: unspecified (1) Nausea & vomiting Vomiting type: unspecified Qualified Code(s): R11.2 - Nausea with vomiting, unspecified
[2021-08-02] MEDS: ONDANSETRON INJ 2 MG/ML 2 ML VIAL IV PRN ×2 (16:13→22:25)
[2021-08-02] MEDS: hydrOXYzine HCl 10 MG TAB PO PRN ×2 (18:20→23:21)
[2021-08-02] MEDS: METOCLOPRAMIDE HCL INJ 5 MG/ML 2 ML VIAL IV PRN ×2 (18:49→23:22)
[2021-08-02] MEDS: PANTOprazole 40 MG in SYRINGE 0 ML IV SCH (23:22)
[2021-08-03] MEDS: D5W AND 1/2NSS 1,000 ML IV SCH (01:56)
[2021-08-03 05:49] LABS: Hematocrit (blood only) 38.4 % (37-47); Hemoglobin 12.7 g/dL (12.0-16.0); Mean Corpuscular Hemoglobin 32.5 pg (25-34); Mean Corpuscular Hgb Conc 33.1 g/dL (32-36); Mean Corpuscular Volume 98.2 fL (80-100); Mean Platelet Volume 10.2 fL (7.4-10.4); Platelet Count 207 K/uL (130-400); RDW Coefficient of Variation 12.5 % (11.5-14.5); RDW Standard Deviation 44.9 fL (36.4-46.3); Red Blood Count 3.91 M/uL (4.2-5.4); White Blood Count 4.95 K/uL (4.8-10.8)
[2021-08-03 06:14] LABS: BUN Creatinine Ratio 4.5 (10-20); Calcium 8.1 mg/dl (8.5-10.1); Creatinine Clr Calc Pharmacy 122.3 ml/min; Est GFR (African American) 147.4 ml/min; Est GFR (Non-African American) 127.2 ml/min; Potassium 3.4 mmol/L (3.5-5.1)
[2021-08-03] MEDS: PANTOprazole 40 MG in SYRINGE 0 ML IV SCH (08:30)
[2021-08-03] MEDS ORDERED: VENLAFAXINE HCL XR 75 MG CAPXR PO SCH (09:00)
[2021-08-03] MEDS ORDERED: VENLAFAXINE HCL XR 150 MG CAPXR PO SCH (09:00)
--- NOTE | 2021-08-03 09:43 | History & Physical Bridge Note ---
Date of Service August 03, 2021 History & Physical Bridge Note I have examined the patient, reviewed the History & Physical and in the interval since the performance of the History & Physical I have noted the following changes of clinical significance: no changes noted. Last episode of emesis on 08/02/21 at 1800. Patient has been NPO since prior to midnight. Proceed with EGD today. Supervising Physician Co-Signing Physician Notes Agree with PABLO Romero as above Abd: Soft, Tender, ND, +BS Continue current therapy Proceed with EGD now.
--- NOTE | 2021-08-03 09:54 | Medical Student Progress Note ---
Date of Service August 03, 2021 Assessment & Plan (1) Nausea & vomiting: Plan: This is a 20 year old female with a history of Crohn's disease presenting for evaluation of a 4-day history of intractable vomiting. Vomiting - last emesis PM of 08/02 - GI consulted, completed EGD which showed normal upper GI anatomy - requested records from home PCP with regards to previous GI work-up - mIVF (D5 in 1/2 NSS) - continue tylenol, zofran, metoclopramide PRN - CT abdomen unremarkable except for urinary wall thickening with perivesicular stranding, WBC normal, CRP and ESR wnl, UA: neg nitrites, 2+ leuk esterase, WBC > 30, epithelial cells > 30, urine cx shows - negative HCG, UDS negative Anxiety - patient was very anxious on PM of 08/02 but feeling much better this AM - continue home venlafaxine and hydroxyzine PRN FEN/GI: D5 in 1/2NSS at 100 mL/hr, NPO Dispo: med/surg Code status: full code DVT Prophylaxis: not indicated Vomiting type: unspecified Qualified Code(s): R11.2 - Nausea with vomiting, unspecified (2) Abdominal pain, acute: (3) History of Crohn's disease: Admission and Anticipated Discharge Date Admission Date: August 02, 2021 Supervising Attestation I also saw the patient concurrent with the resident physician and the medical student and confirmed clements portions of the history and the physical examination. Overnight, felt better. No nausea nor emesis, although she has been NPO for EGD today. Discussed timing of her symptoms in relation to recent medication changes. She started Effexor about 4-6 weeks ago, with an increased dose about two weeks ago, just prior to the start of her current symptoms. Prior to that , she wsa on a SSRI (fluoxetine), which was changed to Effexor because of lack of improvement. Exam 92/57, 53, 18. Affect is reactive, mildly flat. No appreciable distress Heart is regular. Respirations are nonlabored Abdomen with tenderness in the epigastric area and the bilateral lower quadrant s, no rebound. She does have some anticipatory voluntary "guarding" during the exam. Data potassium 3.4 Urine culture mixed delia Impression and Plan Nausea and vomiting Reported history of Crohn's Depression/Anxiety EGD today; appreciated GI input If EGD unremarkable, wonder if symptoms secondary to Effexor Consider decrease Effexor and eventual taper off She follows with outpatient psychiatry Will re-try PO diet post EGD Continue PPI Subjective This AM, patient says she feels much better and hasn't vomited since yesterday evening. She says that her abdominal pain and nausea have resolved. She denies fevers/chills and headaches. She has been urinating appropriately but has not had a bowel movement yet. She was very tearful yesterday afternoon but says her mood is much better this morning and she feels the anxiolytics have been helping. She gave her psychiatrist's number and said the team could call and discuss her case. Review of Systems Review of Systems: per HPI Physical Exam Constitutional: no acute distress Eyes: PERRL, conjunctivae normal, anicteric sclerae ENMT: external ear and nose normal, oropharynx normal Mouth: + dry oral mucous membranes Neck: trachea midline, no thyromegaly Respiratory: normal respiratory effort, lungs clear to auscultation Cardiovascular: RRR, no murmur, no edema Gastrointestinal (Abdomen): Inspection/Auscultation: + hypoactive bowel sounds; abdomen not distended Percussion/Palpation: + abdomen tender (epi gastric) and abdomen soft Psychiatric: A+Ox3, euthymic affect Results & Data ([facility]) Vital Signs (Past 12 Hours) Vital Signs Temp Pulse Resp BP Pulse Ox 08/03/21 07:51 36.8 C 60 18 94/57 L 100 Laboratory Results 08/03/21 08/03/21 08/02/21 Range/Units 05:36 05:36 Unknown WBC 4.95 (4.8-10.8) K/uL RBC 3.91 L (4.2-5.4) M/uL Hgb 12.7 (12.0-16.0) g/dL Hct 38.4 (37-47) % MCV 98.2 (80-100) fL MCH 32.5 (25-34) pg MCHC 33.1 (32-36) g/dL RDW Std Deviation 44.9 (36.4-46.3) fL RDW Coeff of Brigitte 12.5 (11.5-14.5) % Plt Count 207 (130-400) K/uL MPV 10.2 (7.4-10.4) fL Sodium 136 (136-145) mmol/L Potassium 3.4 L (3.5-5.1) mmol/L Chloride 108 H (98-107) mmol/L Carbon Dioxide 25 (21-32) mmol/L Anion Gap 3 (3-11) BUN 3 L (6-23) mg/dl Creatinine 0.66 (0.6-1.2) mg/dl Est Cr Clr Drug Dosing 122.3 ml/min Est GFR ( Amer) 147.4 ml/min Est GFR (Non-Af Amer) 127.2 ml/min BUN/Creatinine Ratio 4.5 L (10-20) Glucose 89 (70-99(Fasting)) mg/dl Calcium 8.1 L (8.5-10.1) mg/dl C-Reactive Protein (0-0.5) mg/dl Urine Color Yellow Urine Appearance Clear (Clear) Urine pH 8.0 H (4.5-7.5) Ur Specific [place] > 1.045 H (1.000-1.030) Urine Protein Negative (Negative) Urine Glucose (UA) Negative (Negative) Urine Ketones Negative (Negative) Urine Blood Negative (Negative) Urine Nitrite Negative (Negative) Urine Bilirubin Negative (Negative) Urine Urobilinogen Negative (Negative) Ur Leukocyte Esterase 2+ H (Negative) Urine WBC (Auto) >30 H (0-5) /hpf Urine RBC (Auto) 0-4 (0-4) /hpf U Hyaline Cast (Auto) 0 (0-5) /lpf U Epithel Cells (Auto) >30 H (0-5) /lpf Urine Bacteria (Auto) 1+ H (Negative) Urine Opiates Screen (Neg) Ur Methadone, Qual (Neg) Urine Barbiturates (Neg) Ur Phencyclidine (PCP) (Neg) U Amphetamin/Meth Scrn (Neg) MDMA (Ecstasy) Screen (Neg) U Benzodiazepines Scrn (Neg) Ur Cocaine Metabolite (Neg) U Marijuana (THC) Screen (Neg) 08/02/21 08/02/21 Range/Units Unknown 00:40 WBC (4.8-10.8) K/uL RBC (4.2-5.4) M/uL Hgb (12.0-16.0) g/dL Hct (37-47) % MCV (80-100) fL MCH (25-34) pg MCHC (32-36) g/dL RDW Std Deviation (36.4-46.3) fL RDW Coeff of Brigitte (11.5-14.5) % Plt Count (130-400) K/uL MPV (7.4-10.4) fL Sodium (136-145) mmol/L Potassium (3.5-5.1) mmol/L Chloride (98-107) mmol/L Carbon Dioxide (21-32) mmol/L Anion Gap (3-11) BUN (6-23) mg/dl Creatinine (0.6-1.2) mg/dl Est Cr Clr Drug Dosing ml/min Est GFR ( Amer) ml/min Est GFR (Non-Af Amer) ml/min BUN/Creatinine Ratio (10-20) Glucose (70-99(Fasting)) mg/dl Calcium (8.5-10.1) mg/dl C-Reactive Protein < 0.50 (0-0.5) mg/dl Urine Color Urine Appearance (Clear) Urine pH (4.5-7.5) Ur Specific [place] (1.000-1.030) Urine Protein (Negative) Urine Glucose (UA) (Negative) Urine Ketones (Negative) Urine Blood (Negative) Urine Nitrite (Negative) Urine Bilirubin (Negative) Urine Urobilinogen (Negative) Ur Leukocyte Esterase (Negative) Urine WBC (Auto) (0-5) /hpf Urine RBC (Auto) (0-4) /hpf U Hyaline Cast (Auto) (0-5) /lpf U Epithel Cells (Auto) (0-5) /lpf Urine Bacteria (Auto) (Negative) Urine Opiates Screen Neg (Neg) Ur Methadone, Qual Neg (Neg) Urine Barbiturates Neg (Neg) Ur Phencyclidine (PCP) Neg (Neg) U Amphetamin/Meth Scrn Neg (Neg) MDMA (Ecstasy) Screen Neg (Neg) U Benzodiazepines Scrn Neg (Neg) Ur Cocaine Metabolite Neg (Neg) U Marijuana (THC) Screen Neg (Neg)
--- NOTE | 2021-08-03 11:42 | Anesthesiology Consultation ---
Date of Service August 03, 2021 Assessment & Plan (1) Encounter for pre-operative examination: Chart Review Chart Review: Acceptable Risk for Surgery, Patient NOT seen in Pre Admission Testing and freelance data entry initiated Consults Requested none ASA ASA2 Proposed Anesthesia Anesthesia Type: MAC Risk / Benefits Reviewed With: PT / POA / Parent / Guardian, Accepts Plan and Informed Consent Obtained History Surgery Operation Date: 08/03/21 16:30 Proposed Procedures p Esophagogastroduodenoscopy Dr Hyde - Derrick Robles Case, DO Height/Weight Height: 5 ft 8 in Weight: 57 kg Allergies Allergy/AdvReac Type Severity Reaction Status Date / Time No Known Allergies Allergy Verified 08/03/21 11:23 Medications Home Medications Medication Instructions Recorded Confirmed Last Taken dextroamphetamine-amphetamine ER 20 mg PO DAILY PRN 02/21/21 08/02/21 Unknown 20 mg 24hr capsule,extend release gabapentin 100 mg capsule See Rx Instructions .ROUTE .COMPLEX 02/21/21 08/02/21 Unknown albuterol sulfate 90 mcg/actuation 2 inh INHALATION Q6H PRN #8.5 g 04/26/21 08/02/21 Unknown aerosol inhaler levonorgestrel (Kyleena) 17.5 mcg INTRAUTERINE CONTINOUS 08/02/21 08/02/21 Unknown venlafaxine 150 mg 150 mg PO DAILY 08/02/21 08/02/21 07/31/21 capsule,extended release 24 hr venlafaxine 75 mg capsule,extended 75 mg PO DAILY 08/02/21 08/02/21 07/31/21 release 24 hr Active Medications Generic Name Dose Route Start Last Admin Trade Name Freq PRN Reason Stop Dose Admin Hydroxyzine HCl 10 mg 08/02/21 17:24 08/02/21 23:21 Hydroxyzine Hcl 10 Mg Tab PO 09/01/21 17:23 10 mg Q6H PRN Administration Anxiety Dextrose/Sodium Chloride 1,000 mls @ 100 mls/hr 08/02/21 08:45 08/03/21 11:15 D5w And 1/2nss IV 09/01/21 08:44 0 mls/hr .Q10H JOSE Infusion Pantoprazole Sodium 40 mg/ 10 mls @ 5 mls/min 08/02/21 21:00 08/03/21 08:30 Syringe IV 03/23/22 20:59 5 mls/min BID JOSE Administration Metoclopramide HCl 5 mg 08/02/21 10:23 08/02/21 23:22 Metoclopramide Hcl Inj 5 Mg/Ml 2 Ml Vial IV 09/01/21 10:29 5 mg Q6H PRN Administration Vomiting Ondansetron HCl 4 mg 08/02/21 10:12 08/02/21 22:25 Ondansetron Inj 2 Mg/Ml 2 Ml Vial IV 09/01/21 10:11 4 mg Q6H PRN Administration Nausea NPO Date Last Intake of Fluids: 08/03/21 Time Last Intake of Fluids: 10:15 Last Intake of Fluids Comment: sip water Date Last Intake of Solids: 08/02/21 Time Last Intake of Solids: 18:00 Past Medical History Medical History (Updated 08/03/21 @ 11:48 by Zana Lim MD) Crohns disease Encounter for pre-operative examination Exercise / Class Metabolic Activity 1 > 8 Run/Swim/Ski/Tennis Past Family History Family History Other No pertinent family history in first degree relatives Past Surgical History Surgical History No pertinent past surgical history Past Anesthesia History No Hx of Anesthesia Complications and No Family Hx of Anesthesia Complications History of PONV No Hx of PONV and No Hx of Motion Sickness Social History Smoking Status: Never smoker Hx Alcohol Use: Yes Alcohol type: beer alcohol intake frequency: a few times a week Hx Substance Use: No Physical Exam Vital Signs Last Vital Signs Temp 36.8 C 08/03/21 11:18 Pulse 77 08/03/21 11:18 Resp 16 08/03/21 11:18 BP 111/70 08/03/21 11:18 Pulse Ox 100 08/03/21 11:18 ENMT Mouth: + dental restorations (Permanent retainer); no chipped teeth and no loose teeth Thyromental Distance: > or= 3.5 Finger Breadths Mallampati Class: I Neck normal visual inspection and trachea midline; neck extension not limited Respiratory normal respiratory effort; no respiratory distress Auscultation: lungs clear to auscultation bilaterally; no crackles, no rhonchi and no wheezes Cardiovascular Rate/Rhythm: regular rate and regular rhythm Heart Sounds: no gallop, no murmur and no cardiac rub Neurologic moves all extremities and awake Psychiatric Orientation: alert Testing Laboratory Results 08/03/21 05:36 08/03/21 05:36 Urine Color Yellow 08/02/21 Unknown Urine Appearance Clear (Clear) 08/02/21 Unknown Urine pH 8.0 (4.5-7.5) H 08/02/21 Unknown Ur Specific [place] > 1.045 (1.000-1.030) H 08/02/21 Unknown Urine Protein Negative (Negative) 08/02/21 Unknown Urine Glucose (UA) Negative (Negative) 08/02/21 Unknown Urine Ketones Negative (Negative) 08/02/21 Unknown Urine Nitrite Negative (Negative) 08/02/21 Unknown Ur Leukocyte Esterase 2+ (Negative) H 08/02/21 Unknown Urine WBC (Auto) >30 /hpf (0-5) H 08/02/21 Unknown Urine RBC (Auto) 0-4 /hpf (0-4) 08/02/21 Unknown U Hyaline Cast (Auto) 0 /lpf (0-5) 08/02/21 Unknown U Epithel Cells (Auto) >30 /lpf (0-5) H 08/02/21 Unknown Urine Bacteria (Auto) 1+ (Negative) H 08/02/21 Unknown 08/02/21 Unknown Urine Culture - Final Urine,Clean Catch More than three types of organisms present, all moderate counts mixed probable skin delia. No further identifications or sensitivities to follow. Electrocardiogram Date: 07/31/21 Findings: + SB @ (53) and + RBBB Chest X-Ray Date: 02/21/21 Findings: + NAD
[2021-08-03] MEDS ORDERED: LIDOCAINE 2% 2 ML VIAL/AMP(20MG/ML) INFIL ONE (11:47)
[2021-08-03] MEDS ORDERED: PROPOFOL IV EMULSION 10 MG/ML 20 ML VIAL IV ONE (11:47)
[2021-08-03] MEDS ORDERED: MIDAZOLAM HCL 1 MG/ML 2ML VIAL ONE (11:53)
--- NOTE | 2021-08-03 12:05 | GI REPORT ---
Patient Name: Shay Medley Procedure Date: 08/03/2021 11:43 AM Date of : 2000 Admit Type: Inpatient Age: 20 Gender: Female Attending MD: Derrick Hyde DO Procedure: Upper GI endoscopy Providers: Derrick Hyde DO Referring MD: Referred Self Indications: Nausea with vomiting Medicines: Monitored Anesthesia Care Complications: No immediate complications. Estimated Blood Loss: Estimated blood loss: none. Procedure: Pre-Anesthesia Assessment: - Prior to the procedure, a History and Physical was performed, and patient medications and allergies were reviewed. The patient's tolerance of previous anesthesia was also reviewed. The risks and benefits of the procedure and the sedation options and risks were discussed with the patient. All questions were answered, and informed consent was obtained. Prior Anticoagulants: The patient has taken no previous anticoagulant or antiplatelet agents. ASA Grade Assessment: II - A patient with mild systemic disease. After reviewing the risks and benefits, the patient was deemed in satisfactory condition to undergo the procedure. After obtaining informed consent, the endoscope was passed under direct vision. Throughout the procedure, the patient's blood pressure, pulse, and oxygen saturations were monitored continuously. The Endoscope was introduced through the mouth, and advanced to the third part of duodenum. The upper GI endoscopy was accomplished without difficulty. The patient tolerated the procedure well. Findings: The esophagus was normal. The entire examined stomach was normal. Biopsies were taken with a cold forceps for Helicobacter pylori testing. The examined duodenum was normal. Biopsies for histology were taken with a cold forceps for evaluation of celiac disease. Impression: - Normal esophagus. - Normal stomach. Biopsied. - Normal examined duodenum. Biopsied. Recommendation: - Resume previous diet. - Continue present medications. - Await pathology results. - Return to primary care physician as previously scheduled. Derrick Hyde DO 08/03/2021 12:05:14 PM This report has been signed electronically. Note Initiated On: 08/03/2021 11:43 AM Number of Addenda: 0 I attest to the content of the Intraoperative Record and orders documented therein, exceptions below {[id number]}
--- NOTE | 2021-08-03 13:01 | Anesthesiology Progress Note ---
Date of Service August 03, 2021 Anesthesia Post Procedure Vital Signs Vital Signs: Temp Pulse Resp BP Pulse Ox 08/03/21 12:55 36.5 C 53 L 18 92/57 L 99 08/03/21 12:38 51 L 16 112/63 100 08/03/21 12:22 53 L 16 102/56 L 100 08/03/21 12:07 59 L 16 103/59 L 97 08/03/21 11:18 36.8 C 77 16 111/70 100 08/03/21 07:51 36.8 C 60 18 94/57 L 100 08/02/21 21:05 36.8 C 98 H 16 102/68 95 Pain Intensity Bilateral Abdomen: Pain Intensity: 6 Transfer of Care Handoff Completed per policy Notes Mental Status: alert / awake / arousable and participated in evaluation Patient Amnestic to Procedure: Yes Nausea / Vomiting: adequately controlled Pain: adequately controlled Airway Patency, RR, SpO2: stable & adequate BP & HR: stable & adequate Hydration State: stable & adequate Anesthetic Complications: no major complications apparent and Pt Satisfied with anesthetic care
--- NOTE | 2021-08-03 15:09 | Discharge Summary ---
Date of Service August 03, 2021 Admission HPI Per Admitting Provider Patient is a 20 year old female with a history of Crohn's disease who presents for a 2-3 week history of progressively worsening nausea and vomiting who has not been able to keep any food or drink down for the last 4 days. She presented to the ED on Monday 07/31 with abdominal pain and nausea that improved to the point that she could tolerate clear liquids. She was discharged on zofran with instructions to advance her diet as tolerate but returned because the vomiting worsened again and she could keep down neither zofran nor food.The vomit sometimes has bright red blood in it, and she endorses throat pain. She has also been having intermittent abdominal pain. She says that her bowel movements have been normal in frequency and consistency. She has lost about 15 pounds in the last two weeks and attributes it to poor PO intake because of the vomiting. She has not had a Crohn's flare up for about 4 years but says that this is consistent with those flare-ups. Shay says that she was first diagnosed with Crohn's in high school after several long hospitalizations. She does not follow with GI and is prescribed only Bentyl, which her PCP manages. She last saw her PCP last summer and says that she has not been taking the Bentyl recently. She says that she does not thinks she's ever taken any other medications like steroids or mesalamine but is not sure because her mother managed her care when she was first diagnosed as a teenager. Denies fevers, chills, back pain, urinary symptoms. Denies recent travel or sick contacts. Denies recent marijuana usage (per patient, last usage was 3 years ago). Patient is a premed college oli and endorses having a lot of stress in her life. Admission Exam Per Admitting Provider Constitutional: no acute distress Eyes: PERRL, conjunctivae normal, anicteric sclerae ENMT: dry mucous membranes Neck: trachea midline, no thyromegaly Respiratory: normal respiratory effort, lungs clear to auscultation Cardiovascular: RRR, no murmur, no edema Gastrointestinal (Abdomen): Inspection/Auscultation: hypoactive bowel sounds; abdomen soft, nondistended, diffusely tender, voluntary guarding present, no rebound tenderness, no peritoneal signs, no CVA tenderness Psychiatric: A+Ox3, euthymic affect Principal Diagnosis Intractable vomiting Discharge Exam Constitutional WD/WN, vitals as above Eyes PERRL, conjunctivae normal, anicteric sclerae Neck trachea midline, no thyromegaly Respiratory normal respiratory effort, lungs clear to auscultation Cardiovascular RRR, no murmur, no edema Gastrointestinal (Abdomen) normal bowel sounds, soft, nontender, no hepatosplenomegaly mucous membranes pink and moist Discharge Data Allergies Allergy/AdvReac Type Severity Reaction Status Date / Time No Known Allergies Allergy Verified 08/03/21 11:23 Consultations 08/02/21 09:17 ED Decision to Admit Stat 08/02/21 10:18 Consult Gastroenterology Routine 08/02/21 17:26 Consult Health Information Management Routine 08/02/21 20:23 Consult Health Information Management Routine Procedures Performed Operation Date: 08/03/21 16:30 Actual Procedures p EGD Biopsy Cytology - Derrick Robles Case, DO Ordered Studies 08/03/21 08/03/21 Range/Units 05:36 05:36 WBC 4.95 (4.8-10.8) K/uL RBC 3.91 L (4.2-5.4) M/uL Hgb 12.7 (12.0-16.0) g/dL Hct 38.4 (37-47) % MCV 98.2 (80-100) fL MCH 32.5 (25-34) pg MCHC 33.1 (32-36) g/dL RDW Std Deviation 44.9 (36.4-46.3) fL RDW Coeff of Brigitte 12.5 (11.5-14.5) % Plt Count 207 (130-400) K/uL MPV 10.2 (7.4-10.4) fL Sodium 136 (136-145) mmol/L Potassium 3.4 L (3.5-5.1) mmol/L Chloride 108 H (98-107) mmol/L Carbon Dioxide 25 (21-32) mmol/L Anion Gap 3 (3-11) BUN 3 L (6-23) mg/dl Creatinine 0.66 (0.6-1.2) mg/dl Est Cr Clr Drug Dosing 122.3 ml/min Est GFR ( Amer) 147.4 ml/min Est GFR (Non-Af Amer) 127.2 ml/min BUN/Creatinine Ratio 4.5 L (10-20) Glucose 89 (70-99(Fasting)) mg/dl Calcium 8.1 L (8.5-10.1) mg/dl Abdomen/Pelvis CT 08/02/21 07:[address] WITH IV CONTRAST CT DOSE: 269.02 mGy.cm HISTORY: Acute nausea with vomiting intractable n/v TECHNIQUE: Multiaxial CT images of the abdomen and pelvis were performed following the IV administration of 94 cc of Optiray, A dose lowering technique was utilized adhering to the principles of ALARA. COMPARISON STUDY: CT abdomen and pelvis 07/31/2021 FINDINGS: Pectus excavatum causes mass effect upon the heart. Clear lung bases. No pneumatosis or pneumoperitoneum. The spleen, pancreas, gallbladder, adrenal glands and liver appear unremarkable. Patency of the hepatic and portal veins. Unremarkable kidneys. No hydronephrosis. Moderate bladder wall thickening with perivesicular stranding. IUD of the mid uterus. Follicular changes of the ovaries. Small to moderate free pelvic fluid. 1.6 cm peripherally enhancing cystic structure is noted involving the left aspect of the vaginal introitus. Aorta and IVC are unremarkable. No adenopathy No bowel obstruction. The appendix appears noninflamed. No bowel wall thickening. Unremarkable soft tissues. Tiny posterior disc osteophyte complex at L5-S1. Mild lumbar levoscoliosis. There is no acute fracture. IMPRESSION: 1. No bowel obstruction or bowel wall thickening. Normal appendix. 2. Urinary bladder wall thickening with perivesicular stranding. Correlate with urinalysis to exclude cystitis. 3. 1.6 cm cystic structure involving the left aspect of the vaginal introitus is suggestive of a Bartholin's gland cyst. 4. Small to moderate free pelvic fluid, likely physiologic. ACT 112: Negative or not required by law. The above report was generated using voice recognition software. It may contain grammatical, syntax or spelling errors. Electronically signed by: Woody Licona M.D. 08/02/2021 8:40 AM Hospital Course (1) Nausea & vomiting: This is a 20 year old female with a history of Crohn's disease presenting for evaluation of a 4-day history of intractable vomiting. Vomiting - per patient, 2-3 week history of progressively worsening nausea and vomiting with a 4-day history of intractable vomiting and intermittent abdominal pain in which she could not keep any PO intake down - during her stay, GI was consulted and advised PPI therapy and completed an EGD on 08/03/21 which showed normal upper GI anatomy - etiology of vomiting unclear: Crohn's flare vs. toxic vs. infectious * Crohn's flare: WBC, ESR, CRP normal; no lower GI symptoms; normal CT Abdomen, normal EGD * toxic: patient denies drug use, UDS negative; onset of vomiting does seem to correlate with recent increase in home venlafaxine * infectious: WBC normal, vitals stable, no infectious symptoms, normal CT abdomen, urine cx showed normal skin delia * negative HCG - on discharge, patient said nausea had resolved, had not vomited for about 20 hours, and was able to stomach solid food - patient should take PPI for 2 weeks and follow-up with GI - in the setting of suspicion that effexor may have triggered the nausea/vomiting, instructed patient to decrease dose to 150 mg XR and follow-up with her psychiatrist within 1-2 weeks History of Crohn's Disease - history was unclear due to patient not remembering details of diagnosis and treatment because she was diagnosed as a teenager - does not see GI doctor - has been prescribed only Bentyl, which patient has not taken in 2 years - records requested from PCP Dr. John of [facility] for background of diagnosis and past treatment - follow-up with GI for Crohn's management (2) Abdominal pain, acute: (3) History of Crohn's disease: Total Time Total Time Spent Total Time Spent (In Minutes): 30 Discharge Plan Discharge Items Patient Disposition: Home - Self-Care Reason For Visit: Nausea/vomiting Discharge Diagnosis: Persistent emesis Activity: Resume your previous activity Non-emergency contact: Primary Care Provider, Computer Systems Auditor and Psychiatrist Call non-emergency contact if: you have any medication questions, your symptoms worsen, your pain is worsening and you have a fever Follow-up/Referrals: Derrick Hyde DO [Physician] - (GI office will call you.) [facility] [Primary Care Provider] - Diet: Regular Addtl Attending Provider Instructions: You were admitted to the hospital for persistent nausea/vomiting. You were treated with IV fluids and anti-nausea medications. We initially thought you had an IBD/IBS flare but this is less likely given the lack of diarrhea and normal EGD scope findings. It's possible that increased stress caused this too. Another possibility is Effexor side effect from the increased dosing recently. While we're not entirely sure what caused the nausea/vomiting, we think it's a fair idea to try reducing the Effexor dose back to the 150 mg you were taking before. Please slowly advance your diet back to your usual. Do not eat too much solid food too quickly. I'd like you to advance from mostly liquids/soups to solids steadily as you can tolerate. A discharge summary will be sent to [facility] to ensure continuity of care. Please bring this discharge summary with you to your next office appointment so that your provider can review it at that time. Follow-up appointments: We recommend you follow up with a provider shortly after your discharge from the hospital, within 1-2 weeks. This can be with [facility], Dr. John (whom you should also schedule your annual physical with soon). You can also follow up with me at the [facility] clinic next to the hospital by calling [phone] and asking to schedule an appointment with Dr. Emilia Styles MD. [facility] is probably most convenient, so I would recommend that as the first option, but I can also follow up with you in our clinic since I managed your care in the hospital, if you prefer that. You should schedule a telehealth visit with your psychiatrist within 1-2 weeks of discharge. I suggest 1 week from today since this is long enough to see how you do on the lower Effexor dose but not too far away either. I will order referral for appointment with GI. They will call you to schedule an appointment. Dr. Hyde or another GI doctor at his clinic will follow up with you then. Given your previous diagnosis of IBD, it is important you establish care with a GI doctor to best control your Crohn's disease and hopefully prevent flares. Medications: Your medication list has been reviewed and reconciled upon discharge to ensure accuracy and continuity of care. An updated list of all your medications is included with your hospital discharge paperwork. Please review this list closely, and make note of any changes. Please take Effexor 150 mg XR (extended-release) daily instead of 225 mg. Please take Prilosec 20 mg once a day for 2 weeks. This can be purchased over the counter I have prescribed a medication called Iesha to be picked up at [facility] on [facility] [facility]. This is an anti-nausea medication that is meant to be used only when you feel very nauseous. Because this is not a daily maintenance medication, I will only prescribe a few pills and hopefully you won't need them at all. Take your medications as instructed; do not skip a dose of your medicines. Make sure all of your doctors know every medicine you are taking (including vyct-prm-[id number] medicines, vitamins, and supplements). Call your primary care provider before taking any new medicines (including [id number] medicines, vitamins, and supplements), because some of these may interact with your current medications, or may make your symptoms worse. Tell your primary care provider if you cannot afford your medications. CONTACT YOUR PRIMARY CARE PROVIDER if you experience any of the following: Fever Nausea Vomiting Weight loss Lightheadedness Difficulty following your treatment plan, or difficulty taking medications CALL 911 OR GO TO THE EMERGENCY DEPARTMENT if you experience any of the following: Sudden, severe abdominal pain or nausea/vomiting Severe chest pain, or chest pain that radiates (moves) to your jaw or arm Sudden, severe shortness of breath or difficulty breathing Thank you for allowing us to participate in your care. Pending Studies at Discharge: No Stand-Alone Forms: [employer], Work/School Release Medications and DC Order Prescriptions: New ondansetron HCl 4 mg tablet 4 mg PO Q6H PRN (Reason: nausea and vomiting) 3 Days Qty: 10 RF: 0 Continued albuterol sulfate 90 mcg/actuation HFA aerosol inhaler 2 inh inhalation Q6H PRN (Reason: shortness of breath or wheezing) Qty: 8.5 RF: 0 venlafaxine 75 mg capsule,extended release 24hr 75 mg PO DAILY RF: 0 venlafaxine 150 mg capsule,extended release 24hr 150 mg PO DAILY RF: 0 Kyleena 17.5 mcg/24 hrs (5 yrs) 19.5 mg Intrauterine Device 17.5 mcg INTRAUTERINE CONTINOUS RF: 0 dextroamphetamine-amphetamine 20 mg capsule,extended release 24hr 20 mg PO DAILY PRN (Reason: WHEN NEEDED TO FOCUS) RF: 0 gabapentin 100 mg capsule See Rx Instructions .ROUTE .COMPLEX RF: 0 Discharge Orders: Discharge Order (Routine); Ordered 08/03/21 Ordered By: Emilia Styles Admission Data Admit Date/Time: 08/02/21 10:12 Attending Provider: Claus Hayes Admit Provider: Claus Hayes Primary Care Provider: [facility] Other Providers: Neal Phelps ; Derrick Hyde Other Interventions: Discharge Summary Assessment (RN) Last Done: 08/03/21 15:04 Supervising Physician Co-Signing Physician Notes I also saw the patient from [place] portions of the history and physical examination. Agree with impression and plan as noted in the discharge summary, and as delineated below. Over the night, the patient reported less nausea and no emesis. She was, however, NPO for her pending EGD today. EGD was completed and was unremarkable. Post EGD she was feeling better and her diet was advanced without subsequent nausea or vomiting. Reviewed the patient's history again this morning. She notes symptoms started about 2 weeks ago, concurrent with an increased dose of her Effexor. Effexor started about 6 weeks ago, and then the dose was increased about 2 weeks ago. Previous to that she was on fluoxetine, but it sounds as if this was changed to Effexor due to lack of efficacy. The patient does follow with a psychiatrist as an outpatient. Exam 92/57, 53, 18, 36.5, 90% room air Reactive affect. Somewhat flat. HEENT unremarkable. Heart regular Lungs clear with nonlabored respirations Abdomen generally soft and nontender Data WBC 4.95, hemoglobin 12.7, platelet count 207 Sodium 136, potassium 3.4, chloride 108, BUN 3, creatinine 0.66 Impression and Plan Nausea and vomiting Reported history of Crohn's Anxiety/Depression With normal EGD and patient tolerating p.o. without difficulty, okay for discharge Recommend outpatient establishment with gastroenterology Question if her symptoms are related to the increased dose of Effexor, as such we will decrease to 150 mg XR daily Follow-up with outpatient psychiatrist.
== END 2021-08-03 16:06 | disposition home or self-care (01) ==
LOC: EDINP 23:52 → ED 23:52 → 3E 08-02 11:33

== ENCOUNTER 2023-08-19 03:26 | Inpatient (IN) ==
[2023-08-19 04:39] LABS: Hematocrit (blood only) 43.5 % (37.0-47.0); Hemoglobin 14.3 g/dl (12.0-16.0); Mean Corpuscular Hemoglobin 31.8 pg (25.0-34.0); Mean Corpuscular Hgb Conc 32.9 g/dL (32.0-36.0); Mean Corpuscular Volume 96.9 fL (80.0-100.0); Mean Platelet Volume 10.7 fL (9.4-12.4); Platelet Count 314 K/uL (130-400); RDW Coefficient of Variation 11.6 % (11.5-14.5); RDW Standard Deviation 41.5 fL (36.4-46.3); Red Blood Count 4.49 M/uL (4.20-5.40); White Blood Count 7.28 K/ul (4.8-10.8)
--- NOTE | 2023-08-19 04:39 | Emergency Department Note ---
Impression & Plan Depression with suicidal ideation ED Provider Note NAME: ROULA THAPA AGE: 22 SEX: F : 2000 ARRIVES VIA: Walk-In INFORMANT: Patient, ED PROVIDER(S): Corby Hinton MD CHIEF COMPLAINT: Laceration HPI: This is a 22-year-old female presenting for a left forearm laceration. Patient states that she was drinking wine and then drove herself to the emergency department for a laceration to her left forearm. She states that "she fell "patient has appears significant intoxicated at this time. When looking at the wound herself, she notes that "I should have gone deeper ". And then quickly backtracks her comment. Patient is fairly withholding the information about why she possibly has a linear laceration to her. Patient numerous well- healed linear wounds consistent with cutting behavior in this area of her forearm. She states her tetanus is up-to-date from 2 years ago. ROS: See above HPI for pertinent positives & negatives. A total of 10 systems reviewed and were otherwise negative. PAST MEDICAL HISTORY: See Below PAST SURGICAL HISTORY: See Below FAMILY HISTORY: See Below SOCIAL HISTORY: See Below HOME MEDICATIONS: See Below ALLERGIES: See Below VITALS: See Below PHYSICAL EXAMINATION: General: resting comfortably in no acute distress Head: Normocephalic and atraumatic Eyes: Normal inspection, extraocular muscles intact Ear, nose, throat: Normal external exam Neck: Normal range of motion Respiratory: lungs clear to auscultation bilaterally Cardiovascular: Regular rate/rhythm, no murmur GI: soft, nontender, no guarding or rebound Extremities: nontender, moves all extremities, 2 centimeter linear laceration, superficial Neuro: The patient awake and alert, appropriately conversive, no focal deficits, symmetric faces Skin: Warm, dry, and intact MEDICAL DECISION MAKING: This is a 22-year-old female presents for left forearm laceration. High concern for self-inflicted laceration as it is peripherally linear and in the same places other well-healed wounds that appear to be from cutting behavior. -Patient also appears significant intoxicated stating that she drank "someone". Patient also drove self here. -Will do psych at screening workup but I have significant concern of SI versus self-harm behavior. I currently believe patient require screening workup by psychiatry once clinically sober. -Patient's laceration will require repair. -Patient's laceration was repaired with the help of PA student, Vianey. -5 sutures of 5-0 Ethilon was placed after appropriate cleaning of wound -Patient eventually did admit that this was self-inflicted and a suicide attempt. Patient initially refused admission however she is more amenable to voluntary admission at this time. -Patient is medically clear aside from her alcohol occasion. She will be medically cleared on 8:30 AM. -Patient signed out to oncoming physician, Dr. Nguyễn, pending clinical sobriety for medical clearance and further bed search Location: Left forearm Total length: 2 cm Complexity: Simple Verbal consent was obtained after the risks and benefits were explained, including but not limited to bleeding, scarring, infection, pain, and bone/joint/nerve damage. At this time, the risks of the procedure are less than the risks of NOT performing the procedure. A time out was taken and the correct patient and site identified. The skin was prepped with betadine. The target area was anesthetized with 2 ml of 1% lidocaine without epinephrine. Copious irrigation was performed using saline. The skin was re-prepped with betadine and a sterile field set. The wound was explored for foreign bodies and none found. Examination revealed no injury to deep structures such as tendons, bone, or significant blood vessels. Debridement was not performed. The wound edges were approximated using 5, 5-0 simple interrupted Ethilon sutures. Hemostasis and excellent approximation was achieved. Antibacterial ointment and a sterile dressing applied. No complications and the patient tolerated the procedure well. Differential diagnosis: Ideation, laceration Past Med/Surg History Medical History ADHD GERD (gastroesophageal reflux disease) Anxiety Bipolar 1 disorder IBS (irritable bowel syndrome) Encounter for pre-operative examination Surgical History No significant past surgical history No pertinent past surgical history Family History Other No pertinent family history in first degree relatives Social History Smoking Status: Current every day smoker Tobacco Type: E-cigarettes / Vaping Hx Alcohol Use: Yes Alcohol type: beer Hx Substance Use: No Preferred Language: Slovak Communication Ability: Effective 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5 mg PO 1XD PRN Anxiety 08/19/23 08/19/23 lamotrigine 150 mg tablet 150 mg PO QAM 08/19/23 08/19/23 lithium carbonate 600 mg PO QPM 08/19/23 08/19/23 Results & Data (ED) Vital Signs Vital Signs - 24 hr 08/19/23 03:29 08/19/23 03:40 08/19/23 05:27 Temperature 36.8 C 36.4 C L Temperature Source Oral Oral Pulse Rate 98 H 101 H Pulse Rate [Left Finger] 80 Pulse Rhythm Regular Pulse Strength Normal Respiratory Rate 16 18 Respiratory Effort / Characteristics Non-Labored Spontaneous Respiratory Depth Normal Respiratory Pattern Regular Blood Pressure 126/79 Blood Pressure [Left Arm] 95/58 L Blood Pressure Mean 94 Blood Pressure Mean [Left Arm] 70 Blood Pressure Position Sitting Pulse Oximetry 97 95 Oxygen Delivery Method Room Air Sepsis Recent Fever Within 48 Hours No Sepsis New/Unexplained Change in Mental Status N/A Sepsis Action Taken by Nursing No Action Required Laboratory Data 08/19/23 03:39 08/19/23 03:39 Lab Results 08/19/23 08/19/23 08/19/23 Range/Units 03:39 04:23 05:10 WBC 7.28 (4.8-10.8) K/ul RBC 4.49 (4.20-5.40) M/uL Hgb 14.3 (12.0-16.0) g/dl Hct 43.5 (37.0-47.0) % MCV 96.9 (80.0-100.0) fL MCH 31.8 (25.0-34.0) pg MCHC 32.9 (32.0-36.0) g/dL RDW Std Deviation 41.5 (36.4-46.3) fL RDW Coeff of Brigitte 11.6 (11.5-14.5) % Plt Count 314 (130-400) K/uL MPV 10.7 (9.4-12.4) fL Immature Gran % (Auto) 0.1 % Neut % (Auto) 37.7 % Lymph % (Auto) 50.8 % Lea % (Auto) 5.5 % Eos % (Auto) 5.1 % Baso % (Auto) 0.8 % Neut # (Auto) 2.74 (1.40-6.50) K/uL Lymph # (Auto) 3.70 H (1.20-3.40) K/uL Lea # (Auto) 0.40 (0.11-0.59) K/uL Eos # (Auto) 0.37 (0.00-0.50) K/uL Baso # (Auto) 0.06 (0.00-0.20) K/uL Immature Gran # (Auto) 0.01 (0.01-0.20) K/uL RBC Morphology Unremarkable Sodium 141 (136-145) mmol/L Potassium 4.1 (3.5-5.1) mmol/L Chloride 109 H (98-107) mmol/L Carbon Dioxide 23 (21-32) mmol/L Anion Gap 9 (3-11) BUN 12 (6-23) mg/dl Creatinine 0.89 (0.6-1.2) mg/dl Est Cr Clr Drug Dosing 92.5 ml/min Est GFR ( Amer) 106.6 ml/min Est GFR (Non-Af Amer) 92.0 ml/min BUN/Creatinine Ratio 13.5 (10-20) Glucose 98 (70-99(Fasting)) mg/dl Calcium 9.2 (8.6-10.3) mg/dl Total Bilirubin 0.4 (0.2-1.0) mg/dl AST 21 (13-39) U/L ALT 15 (7-52) U/L Alkaline Phosphatase 71 (34-104) U/L Total Protein 7.5 (6.0-8.3) gm/dl Albumin 5.0 (3.4-5.0) gm/dl Globulin 2.5 (2.5-4.0) gm/dl Albumin/Globulin Ratio 2.0 (0.9-2) TSH 3.936 (0.300-4.500) uIu/ml Urine Color Yellow Urine Appearance Clear (Clear) Urine pH 5.5 (4.5-7.5) Ur Specific [place] 1.010 (1.000-1.030) Urine Protein Negative (Negative) Urine Glucose (UA) Negative (Negative) Urine Ketones Negative (Negative) Urine Blood Negative (Negative) Urine Nitrite Negative (Negative) Urine Bilirubin Negative (Negative) Urine Urobilinogen Negative (Negative) Ur Leukocyte Esterase Negative (Negative) Salicylates < 3.0 L (3.0-30) mg/dl Urine Opiates Screen Neg (Neg) Ur Methadone, Qual Neg (Neg) Acetaminophen < 3 L (10-30) ug/ml Urine Barbiturates Neg (Neg) Ur Phencyclidine (PCP) Neg (Neg) U Amphetamin/Meth Scrn Neg (Neg) MDMA (Ecstasy) Screen Neg (Neg) U Benzodiazepines Scrn Neg (Neg) Ur Cocaine Metabolite Neg (Neg) U Marijuana (THC) Screen Neg (Neg) Ethyl Alcohol mg/dL 226.0 H (<10.0) mg/dl SARS-CoV-2, RNA, NAAT NEGATIVE (NEGATIVE) Administered Medications Discontinued Medications Lidocaine/Epinephrine (Lidocaine 2%/Epinephrine 1:200,000 20 Ml Pf) 5 ml INFIL NOW STA Stop: 08/19/23 04:24 Last Admin: 08/19/23 05:23 Dose: 5 ml Documented By: SANG Discharge Plan Visit Data Chief Complaint: Laceration/Cut (Non-Suture) Stated Complaint: CUT TO THE WRIST ED Provider: Roberto Carlos Nguyễn Discharge Problem: Depression with suicidal ideation Forms Stand Alone Forms: [employer] Prescriptions Prescriptions: No Action Kyleena 17.5 mcg/24 hrs (5 yrs) 19.5 mg Intrauterine Device 17.5 mcg INTRAUTERINE CONTINOUS lamotrigine 150 mg tablet 150 mg PO QAM lithium carbonate 600 mg PO QPM clonazepam 0.5 mg PO 1XD PRN (Reason: Anxiety) Adderall XR 25 mg PO QAM Referrals Referrals: [place] [Primary Care Provider] -
[2023-08-19 04:42] LABS: BUN Creatinine Ratio 13.5 (10-20); Bilirubin,Total 0.4 mg/dl (0.2-1.0); Calcium 9.2 mg/dl (8.6-10.3); Creatinine Clr Calc Pharmacy 92.5 ml/min; Est GFR (African American) 106.6 ml/min; Globulin 2.5 gm/dl (2.5-4.0); Potassium 4.1 mmol/L (3.5-5.1); Total Protein 7.5 gm/dl (6.0-8.3)
[2023-08-19 04:56] LABS: Thyroid Stimulating Hormone 3.936 uIu/ml (0.300-4.500)
[2023-08-19 05:23] LABS: Basophils # (auto) 0.06 K/uL (0.00-0.20); Basophils % (auto) 0.8 %; Eosinophils # (auto) 0.37 K/uL (0.00-0.50); Eosinophils % (auto) 5.1 %; Immature Granulocytes # (auto) 0.01 K/uL (0.01-0.20); Immature Granulocytes % (auto) 0.1 %; Lymphocytes % (auto) 50.8 %; Monocytes % (auto) 5.5 %; Neutrophils # (auto) 2.74 K/uL (1.40-6.50); Neutrophils % (auto) 37.7 %; RBC Morphology Unremarkable
[2023-08-19] MEDS: LIDOCAINE 2%/EPINEPHRINE 1:200,000 20 ML PF INFIL STA (05:23)
[2023-08-19 05:24] LABS: Acetaminophen < 3 ug/ml (10-30); Salicylate < 3.0 mg/dl (3.0-30)
[2023-08-19 05:51] LABS: Amphetamines+Metham, Urine Neg (Neg); Barbiturates, Urine Neg (Neg); Benzodiazepine, Urine Neg (Neg); Cocaine, Urine Neg (Neg); MDMA (Ecstacy), Urine Neg (Neg); Marijuana, Urine Neg (Neg); Methadone, Urine Neg (Neg); Opiate, Urine Neg (Neg); Phencyclidine, Urine Neg (Neg)
[2023-08-19 06:00] LABS: Appearance Urine Clear (Clear); Bilirubin Urine Negative (Negative); Blood Urine Negative (Negative); Color Urine Yellow; Glucose Urine UA Negative (Negative); Ketones Urine Negative (Negative); Leukocyte Esterase Urine Negative (Negative); Nitrite Urine Negative (Negative); Protein Urine Negative (Negative); Urobilinogen Urine Negative (Negative); pH Urine 5.5 (4.5-7.5)
--- NOTE | 2023-08-19 07:27 | Emergency Department Note ---
ED Visit Note I received signout from Dr. Hinton. The patient reportedly drank a bottle of wine and then cut herself with possible intent. Patient does have a prior history of of depression and prior history of attempt. Patient was clinically intoxicated at the time of arrival and to be medically cleared from alcohol around 8:30 AM for formal evaluation from psych. Otherwise the patient is medically cleared. [place] level ordered. The patient did have left arm laceration repaired by prior physician Dr. Hinton. Patient's home medications were ordered. Referrals were made after the patient was medically cleared and the patient was accepted to [facility] for inpatient treatment Impression: Depression with suicidal ideation Self-injurious behavior Forearm laceration .
[2023-08-19] MEDS ORDERED: NON-FORMULARY MEDICATION (Clonazepam 0.5 MG) PO PRN (07:34)
[2023-08-19 08:13] VITALS: RESP 16
[2023-08-19] MEDS ORDERED: ADDERALL 25 MG PO SCH (09:00)
[2023-08-19] MEDS ORDERED: NON-FORMULARY MEDICATION (Lamotrigine 150 mg tablet) PO SCH (09:00)
[2023-08-19] MEDS ORDERED: clonazePAM 0.5 MG TAB PO PRN (09:02)
[2023-08-19 09:24] LABS: Pregnancy Test, Urine Negative (Negative)
[2023-08-19] MEDS ORDERED: hydrOXYzine HCl 25 MG TAB PO PRN (09:58)
[2023-08-19] MEDS ORDERED: ACETAMINOPHEN 325 MG TAB PO PRN (09:58)
[2023-08-19] MEDS ORDERED: BISMUTH SUBSALICYLATE LIQD 236 ML PO PRN (09:58)
[2023-08-19] MEDS ORDERED: SODIUM CHLORIDE 0.65% NA SOLN 45 ML (OCEAN) PRN (09:58)
[2023-08-19] MEDS ORDERED: NICOTINE POLACRILEX 2 MG GUM MT PRN (09:58)
[2023-08-19] MEDS ORDERED: MAGNESIUM HYDROXIDE SUSP 30 ML UDC PO PRN (09:58)
[2023-08-19] MEDS ORDERED: ALUMINUM/MAGNESIUM SUSP 30 ML UDC PO PRN (09:58)
[2023-08-19] MEDS: DEXTROAMPHETAMINE/AMPHETAMINE ER 5 MG CAP PO SCH (10:17)
[2023-08-19] MEDS: DEXTROAMPHETAMINE/AMPHETAMINE ER 10 MG CAP PO SCH (10:17)
[2023-08-19] MEDS: lamoTRIgine 100 MG TAB PO SCH (10:18)
[2023-08-19 11:18] VITALS: O2SAT 99
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
[2023-08-19] MEDS: LITHIUM CARBONATE 300 MG TAB PO SCH (20:55)
[2023-08-19] MEDS ORDERED: NON-FORMULARY MEDICATION (Lithium Carbonate 600 MG) PO SCH (21:00)
[2023-08-19] MEDS ORDERED: LITHIUM CARBONATE 300 MG TAB PO SCH (21:00)
[2023-08-19] MEDS: hydrOXYzine HCl 25 MG TAB PO PRN (22:36)
[2023-08-20] MEDS ORDERED: DEXTROAMPHETAMINE/AMPHETAMINE ER 10 MG CAP PO SCH (09:00)
[2023-08-20] MEDS: lamoTRIgine 100 MG TAB PO SCH (12:01)
--- NOTE | 2023-08-20 12:21 | Psychiatric Progress Note ---
Date of Service August 20, 2023 Impression / Recommendations Impression 22 year old female with past psychiatric history of depression, borderline personality disorder and chronic suicidal thought who presented to the hospital after cutting herself and admitting it was a suicide attempt. (1) Depression with suicidal ideation: I have continued her home lithium dose and decreased her Lamictal. Rather than my plan from yesterday. It has become apparent to me that her problems are mostly situational and due to her borderline personality disorder rather than bipolar disorder. (2) Borderline personality disorder: Groups and milieu therapy targeted at dealing with emotional lability. Plan Admit to inpatient unit for stabilization and treatment. Encourage participation in all milieu. Particularly focus treatment on her Borderline Personality disorder and controlling her emotional lability in a positive manner. We will assess her medications. Currently her lithium is at her home dose and her lamictal is on a lower dose. Patient also needs to be encouraged to stop using alcohol as this exacerbates her emotions and leads to poor judgement such as driving while intoxicated. Suicide Risk Level Suicide Risk Level: Low (q15 min observation checks) Suicide Risk Level Comments: Patient cut herself while she was intoxicated. At the time of the interview, she denied suicidal ideation and contracted for safety. Much of her cutting is not suicidal intent. Likely due to emotional lability. Risk Factors Assessment : Yes Do You Have Access To A Gun?: No (verify upon discharge) Mental Health Diagnoses: Yes Previous Attempt: Yes Protective Factors Assessment Employed: No Good Rapport with Provider: Yes Interval History Chief Complaint "I have to finish my degree this year". Review of Systems Sleep Information Total Hours of Sleep: 5.5 Meal Information Percent Meal Consumed - Lunch: 0 Percent Meal Consumed - Dinner: 10 Subjective Subjective Patient was seen & assessed and interval progress reviewed with nursing and social work. She was still in bed at 11 am and I encouraged her to get out of bed and participate in all the activities. At the time of my interview, she denied suicidal ideation or wanting to self harm. She does feel helpless and hopeless though this is because of situational issues: her fear of telling her parents (who she says do not support her, do not believe in mental health treatment and she is financially dependent on them.) I explained to her that medications are not going to help with her situational stressors and she needs to take action to change things. Physical Exam Psychiatric Orientation: alert and oriented x 3 Apperance: appropriately dressed and appropriately groomed Eye Contact: good eye contact Motor Behavior: steady gait and station and no abnormal motor movements Speech: normal rate/rhythm/volume of speech Affect: + depressed affect and + anxious affect Mood: + dysphoric mood Thought Process: + circumstantial thought process Thought Content: + hopelessness and + guilt Suicidal Thoughts: denies suicidal thoughts, denies suicidal plan and denies suicidal intent Homicidal Thoughts: denies homicidal thoughts, denies homicidal plan and denies homicidal intent Hallucinations: no auditory hallucinations and no visual hallucinations Cognition: recent memory grossly intact, remote memory grossly intact, attention grossly intact and language grossly intact Estimated Intelligence: + above average estimated intelligence Insight: + limited insight Judgment: + poor judgement Vital Signs (Past 24 Hours) Last Vital Signs Temp 36.8 C 08/20/23 06:32 Pulse 94 H 08/20/23 06:33 Resp 16 08/20/23 06:32 BP 116/81 08/20/23 06:33 Pulse Ox 99 08/19/23 11:06 O2 Del Method Room Air 08/19/23 11:06 Results & Data ([facility]) Current Inpatient Medications Current Inpatient Medications: Current Inpatient Medications Acetaminophen (Acetaminophen 325 Mg Tab) 650 mg PO Q4H PRN PRN Reason: Headache or Minor Fever Stop: 09/18/23 09:57 Al Hydrox/Mg Hydrox/Simethicone (Aluminum/Magnesium Susp 30 Ml Udc) 30 ml PO Q4H PRN PRN Reason: GI Upset Stop: 09/18/23 09:57 Bismuth Subsalicylate (Bismuth Subsalicylate Liqd 236 Ml) 15 ml PO PRN PRN PRN Reason: Loose Stool Stop: 09/18/23 09:57 Hydroxyzine HCl (Hydroxyzine Hcl 25 Mg Tab) 50 mg PO HSZ PRN PRN Reason: Insomnia Stop: 09/18/23 09:57 Last Admin: 08/19/23 22:36 Dose: 50 mg Hydroxyzine HCl (Hydroxyzine Hcl 25 Mg Tab) 25 mg PO Q4H PRN PRN Reason: Anxiety Stop: 09/18/23 09:57 Lamotrigine (Lamotrigine 100 Mg Tab) 100 mg PO QAM [facility]; Protocol Stop: 09/19/23 08:59 Last Admin: 08/20/23 12:01 Dose: 100 mg [place] Carbonate ([place] Carbonate 300 Mg Tab) 600 mg PO QPM JOSE Stop: 09/18/23 20:59 Last Admin: 08/19/23 20:55 Dose: 600 mg Magnesium Hydroxide (Magnesium Hydroxide Susp 30 Ml Udc) 30 ml PO DAILY PRN PRN Reason: Constipation Stop: 09/18/23 09:57 Nicotine Polacrilex (Nicotine Polacrilex 2 Mg Gum) 2 piece MT PRN PRN PRN Reason: Nicotine Withdrawal Symptoms Stop: 09/18/23 09:57 Sodium Chloride (Sodium Chloride 0.65% Na Soln 45 Ml ([place])) 1 - 2 sprays NA PRN PRN PRN Reason: Nasal Dryness/Congestion Stop: 09/18/23 09:57 Mental Health & Subst Abuse Tx Therapist Name of Therapist: Rancho Aguilar, psychologist Post Discharge Appointments Primary Care Physician Name Of Family Doctor/PCP: LIZ
[2023-08-21 11:03] LABS: Appearance Urine Turbid (Clear); Bacteria Urine Automated 4+ (Negative); Bilirubin Urine Negative (Negative); Blood Urine 3+ (Negative); Color Urine Yellow; Epithelial Cell Urine Auto >30 /lpf (0-5); Glucose Urine UA Negative (Negative); Ketones Urine Negative (Negative); Leukocyte Esterase Urine 3+ (Negative); Nitrite Urine Positive (Negative); Protein Urine 2+ (Negative); Specific Gravity Urine 1.013 (1.000-1.030); Urobilinogen Urine Negative (Negative); WBC Urine Automated >30 /hpf (0-5)
--- NOTE | 2023-08-21 13:02 | Psychiatric Progress Note ---
Date of Service August 21, 2023 Impression / Recommendations Impression 22 year old female with past psychiatric history of depression, borderline personality disorder and chronic suicidal thought who presented to the hospital after cutting herself and admitting it was a suicide attempt. (1) Depression with suicidal ideation: I have chosen not to incease [place] dose for symptoms of depression and suicidality The patient stated that it doesn't seem to help. The more I observe her, the more it appears that her problem is the BPD rather than Bipolar disorder. (2) Borderline personality disorder: Groups and milieu therapy targeted at dealing with emotional lability. Plan Admit to inpatient unit for stabilization and treatment. Encourage participation in all milieu. Particularly focus treatment on her Borderline Personality disorder and controlling her emotional lability in a positive manner. After further consideration I have maintained her medications at their current doses. She appears to be doing very well and she states her triggers are school and her parents. Suicide Risk Level Suicide Risk Level: Low (q15 min observation checks) Suicide Risk Level Comments: Patient cut herself while she was intoxicated. At the time of the interview, she denied suicidal ideation and contracted for safety. Much of her cutting is not suicidal intent. Likely due to emotional lability. Risk Factors Assessment : Yes Do You Have Access To A Gun?: No (verify upon discharge) Mental Health Diagnoses: Yes Previous Attempt: Yes Protective Factors Assessment Employed: No Good Rapport with Provider: Yes Interval History Chief Complaint "I don't need to be here". Review of Systems Sleep Information Total Hours of Sleep: 7.5 Meal Information Percent Meal Consumed - Breakfast: 100 Percent Meal Consumed - Lunch: 5 Percent Meal Consumed - Dinner: 15 Nutrition Comment: Patient reported eating only 25% Subjective Subjective Patient was seen & assessed and interval progress reviewed with treatment team, nursing and social work. She was intermittently teary because she feels trapped by the fact that she feels her parents will be very angry with her. She states that they don't believe in mental health treatment but the only thing good in her life is finishing college. She thinks they might not support her anymore. She complained of symptoms of a UTI. We tested her urine and an antibiotic was prescribed. Later on in the day she gave written permission for the staff to talk to her mother. She denies current suicidal ideation and is frustrated because she thinks that she is getting no help here. I reminded her that Borderline Personality Disorder is not something that inpatient hospitalization can help, except when the person is actively in crisis. That the mainstay of treatment is done as an outpatient. I also discussed with her that binge drinking is very dangerous and appears to trigger her suicidality so she should stop using alcohol or other psychoactive substances. I also discussed her eating disorder. She appears to be restricting. She was not willing to admit that this is a problem. Physical Exam Psychiatric Orientation: alert and oriented x 3 Apperance: appropriately dressed and appropriately groomed Eye Contact: good eye contact Motor Behavior: steady gait and station and no abnormal motor movements Speech: normal rate/rhythm/volume of speech Affect: + depressed affect and + anxious affect Mood: + dysphoric mood Thought Process: + circumstantial thought process Thought Content: + hopelessness and + guilt Suicidal Thoughts: denies suicidal thoughts, denies suicidal plan and denies suicidal intent Homicidal Thoughts: denies homicidal thoughts, denies homicidal plan and denies homicidal intent Hallucinations: no auditory hallucinations and no visual hallucinations Cognition: recent memory grossly intact, remote memory grossly intact, attention grossly intact and language grossly intact Estimated Intelligence: + above average estimated intelligence Insight: + limited insight Judgment: + poor judgement Vital Signs (Past 24 Hours) Last Vital Signs Temp 37 C 08/21/23 06:33 Pulse 80 08/21/23 06:33 Resp 16 08/21/23 06:33 BP 103/64 08/21/23 06:33 Pulse Ox 99 08/19/23 11:06 O2 Del Method Room Air 08/19/23 11:06 Results & Data ([facility]) Laboratory Results Laboratory Results - last 24 hr 08/21/23 10:39 Urine Color Yellow Urine Appearance Turbid A Urine pH 7.0 Ur Specific [place] 1.013 Urine Protein 2+ H Urine Glucose (UA) Negative Urine Ketones Negative Urine Blood 3+ H Urine Nitrite Positive A Urine Bilirubin Negative Urine Urobilinogen Negative Ur Leukocyte Esterase 3+ H Urine WBC (Auto) >30 H Urine RBC (Auto) 10-30 H U Hyaline Cast (Auto) 1-5 U Epithel Cells (Auto) >30 H Urine Bacteria (Auto) 4+ H Current Inpatient Medications Current Inpatient Medications: Current Inpatient Medications Acetaminophen (Acetaminophen 325 Mg Tab) 650 mg PO Q4H PRN PRN Reason: Headache or Minor Fever Stop: 09/18/23 09:57 Al Hydrox/Mg Hydrox/Simethicone (Aluminum/Magnesium Susp 30 Ml Udc) 30 ml PO Q4H PRN PRN Reason: GI Upset Stop: 09/18/23 09:57 Bismuth Subsalicylate (Bismuth Subsalicylate Liqd 236 Ml) 15 ml PO PRN PRN PRN Reason: Loose Stool Stop: 09/18/23 09:57 Hydroxyzine HCl (Hydroxyzine Hcl 25 Mg Tab) 50 mg PO HSZ PRN PRN Reason: Insomnia Stop: 09/18/23 09:57 Last Admin: 08/20/23 21:14 Dose: 50 mg Hydroxyzine HCl (Hydroxyzine Hcl 25 Mg Tab) 25 mg PO Q4H PRN PRN Reason: Anxiety Stop: 09/18/23 09:57 Lamotrigine (Lamotrigine 100 Mg Tab) 100 mg PO QAM JOSE; Protocol Stop: 09/19/23 08:59 Last Admin: 08/21/23 10:39 Dose: 100 mg [place] Carbonate ([place] Carbonate 300 Mg Tab) 600 mg PO QPM JOSE Stop: 09/18/23 20:59 Last Admin: 08/20/23 21:08 Dose: 600 mg Magnesium Hydroxide (Magnesium Hydroxide Susp 30 Ml Udc) 30 ml PO DAILY PRN PRN Reason: Constipation Stop: 09/18/23 09:57 Nicotine Polacrilex (Nicotine Polacrilex 2 Mg Gum) 2 piece MT PRN PRN PRN Reason: Nicotine Withdrawal Symptoms Stop: 09/18/23 09:57 Sodium Chloride (Sodium Chloride 0.65% Na Soln 45 Ml ([place])) 1 - 2 sprays NA PRN PRN PRN Reason: Nasal Dryness/Congestion Stop: 09/18/23 09:57 Mental Health & Subst Abuse Tx Therapist Name of Therapist: Rancho Aguilar, psychologist Post Discharge Appointments Primary Care Physician Name Of Family Doctor/PCP: LIZ
[2023-08-21] MEDS: SULFAMETHOXAZOLE/TRIMETHOPRIM DS 800/160MG TAB PO ONE (13:29)
[2023-08-21] MEDS: SULFAMETHOXAZOLE/TRIMETHOPRIM DS 800/160MG TAB PO SCH (22:46)
[2023-08-22 06:42] VITALS: TEMP 97.9
--- NOTE | 2023-08-22 12:55 | Psychiatric Progress Note ---
Date of Service August 22, 2023 Impression / Recommendations Impression 22 year old female with past psychiatric history of depression, borderline personality disorder and chronic suicidal thought who presented to the hospital after cutting herself and admitting it was a suicide attempt. (1) Depression with suicidal ideation: I have chosen not to incease [place] dose for symptoms of depression and suicidality The patient stated that it doesn't seem to help. The more I observe her, the more it appears that her problem is the BPD rather than Bipolar disorder. (2) Borderline personality disorder: Groups and milieu therapy targeted at dealing with emotional lability. Plan 08/22/23 With patient's written permission, I spoke to her mother today and she is very supportive of her daughter. She says she will come to be here with her daughter. I later spoke to the patient and she indicated that she might rescind her permission for us to talk to her mother. The patient continues to be labile and manipulative. When she gets her way, she is pleasant and cooperative but when she is challenged her behavior becomes difficult. Admit to inpatient unit for stabilization and treatment. Encourage participation in all milieu. Particularly focus treatment on her Borderline Personality disorder and controlling her emotional lability in a positive manner. After further consideration I have maintained her medications at their current doses. She appears to be doing very well and she states her triggers are school and her parents. Suicide Risk Level Suicide Risk Level: Low (q15 min observation checks) Suicide Risk Level Comments: Patient cut herself while she was intoxicated. At the time of the interview, she denied suicidal ideation and contracted for safety. Much of her cutting is not suicidal intent. Likely due to emotional lability. Risk Factors Assessment : Yes Do You Have Access To A Gun?: No (verify upon discharge) Mental Health Diagnoses: Yes Previous Attempt: Yes Protective Factors Assessment Employed: No Good Rapport with Provider: Yes Interval History Chief Complaint "my parents won't support me". Review of Systems Sleep Information Total Hours of Sleep: 6 Meal Information Percent Meal Consumed - Breakfast: 75 Percent Meal Consumed - Lunch: 50 Percent Meal Consumed - Dinner: 25 Nutrition Comment: Patient reported eating only 25% Subjective Subjective Patient was seen & assessed and interval progress reviewed with nursing and social work. I also spoke to her mother by phone this morning for approximately 45 minutes. She had given written permission for me to talk to her mother yesterday. Her mother was understanding and worried about her daughter. She says that she will come here to [place]. Later on, when I discussed this with the patient, she stated that she was going to rescind the permission to talk to her parents. I urged her to keep communication open now that her parents already know. I also told her that she needs to formally request that the permission be rescinded. She states that she is doing ok while she is here and wonders why her mood changes so quickly. I reminded her that many of her self harm attempts have happened when she was drunk so she should stop using substances. She says that she is not an alcoholic and I have reminded her that binge drinking is dangerous. Physical Exam Psychiatric Orientation: alert and oriented x 3 Apperance: appropriately dressed and appropriately groomed Eye Contact: good eye contact Motor Behavior: steady gait and station and no abnormal motor movements Speech: normal rate/rhythm/volume of speech Affect: + labile affect Mood: + dysphoric mood Thought Process: + circumstantial thought process Thought Content: + hopelessness and + guilt Suicidal Thoughts: denies suicidal thoughts, denies suicidal plan and denies suicidal intent Homicidal Thoughts: denies homicidal thoughts, denies homicidal plan and denies homicidal intent Hallucinations: no auditory hallucinations and no visual hallucinations Cognition: recent memory grossly intact, remote memory grossly intact, attention grossly intact and language grossly intact Estimated Intelligence: + above average estimated intelligence Insight: + limited insight Judgment: + poor judgement Vital Signs (Past 24 Hours) Last Vital Signs Temp 36.6 C 08/22/23 06:41 Pulse 58 L 08/22/23 06:41 Resp 16 08/22/23 06:41 BP 93/64 L 08/22/23 06:41 Pulse Ox 99 08/19/23 11:06 O2 Del Method Room Air 08/19/23 11:06 Results & Data ([facility]) Current Inpatient Medications Current Inpatient Medications: Current Inpatient Medications Acetaminophen (Acetaminophen 325 Mg Tab) 650 mg PO Q4H PRN PRN Reason: Headache or Minor Fever Stop: 09/18/23 09:57 Al Hydrox/Mg Hydrox/Simethicone (Aluminum/Magnesium Susp 30 Ml Udc) 30 ml PO Q4H PRN PRN Reason: GI Upset Stop: 09/18/23 09:57 Bismuth Subsalicylate (Bismuth Subsalicylate Liqd 236 Ml) 15 ml PO PRN PRN PRN Reason: Loose Stool Stop: 09/18/23 09:57 Hydroxyzine HCl (Hydroxyzine Hcl 25 Mg Tab) 50 mg PO HSZ PRN PRN Reason: Insomnia Stop: 09/18/23 09:57 Last Admin: 08/21/23 22:46 Dose: 50 mg Hydroxyzine HCl (Hydroxyzine Hcl 25 Mg Tab) 25 mg PO Q4H PRN PRN Reason: Anxiety Stop: 09/18/23 09:57 Lamotrigine (Lamotrigine 100 Mg Tab) 100 mg PO QAM JOSE; Protocol Stop: 09/19/23 08:59 Last Admin: 08/22/23 09:21 Dose: 100 mg [place] Carbonate ([place] Carbonate 300 Mg Tab) 600 mg PO QPM JOSE Stop: 09/18/23 20:59 Last Admin: 08/21/23 22:46 Dose: 600 mg Magnesium Hydroxide (Magnesium Hydroxide Susp 30 Ml Udc) 30 ml PO DAILY PRN PRN Reason: Constipation Stop: 09/18/23 09:57 Nicotine Polacrilex (Nicotine Polacrilex 2 Mg Gum) 2 piece MT PRN PRN PRN Reason: Nicotine Withdrawal Symptoms Stop: 09/18/23 09:57 Sodium Chloride (Sodium Chloride 0.65% Na Soln 45 Ml ([place])) 1 - 2 sprays NA PRN PRN PRN Reason: Nasal Dryness/Congestion Stop: 09/18/23 09:57 Trimethoprim/Sulfamethoxazole (Sulfamethoxazole/Trimethoprim Ds 800/160mg Tab) 1 tab PO Q12 JOSE Stop: 08/26/23 20:59 Last Admin: 08/22/23 09:21 Dose: 1 tab Mental Health & Subst Abuse Tx Therapist Name of Therapist: Rancho Aguilar psychologist Date of Therapist Appointment: 08/24/23 Time of Therapist Appointment: 3:00pm Therapy Appointment Comment: via telehealth [employer] Name of [employer] Processing [employer] Operator: [employer] [facility] [employer] [facility] Post Discharge Appointments Primary Care Physician Name Of Family Doctor/PCP: LIZ
[2023-08-23] MEDS ORDERED: DESTROY THIS MEDICATION ONE (10:55)
--- NOTE | 2023-08-23 14:47 | Discharge Summary ---
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 She has a past psychiatric history of depression, anxiety, borderline personality disorder, ADHD, and an uncertain history of bipolar disorder. She was admitted on 08/19/23 09:58 on a 201 voluntary basis. The patient had reportedly been drinking last night (she states that she can't remember how much she drank) and cut herself on the left forearm. She says that she brought herself in to the hospital to have her arm sutured. She says she can't even remember how she got to the hospital: she says that she probably drove herself. She has a history of cutting from the time she was 13 years old. She says that she initially did it to "feel something" but when she became an adult it began to be suicide attempts. She has come into the hospital on several occasions after cutting herself but since she denied suicidal ideation, she has been discharged. She states that she lied in the past because she didn't want to be admitted to the inpatient unit. She states that she was started on Whigham approximately one month ago. She does find it helpful. Since this medication is known to help with chronic suicidal thoughts, we discussed that we will increase it. At the time of the interview, the patient denied current suicidal ideation. She was teary intermittently in the interview but was mostly cooperative. She admitted to often lying to medical personnel including to her outpatient psychiatrist and therapist: She states that she has never told them about her cutting or suicidal thoughts. Physical Exam Psychiatric Orientation: alert and oriented x 3 Apperance: appropriately dressed and appropriately groomed Eye Contact: good eye contact Motor Behavior: steady gait and station and no abnormal motor movements Speech: normal rate/rhythm/volume of speech Affect: euthymic affect and + labile affect Mood: + dysphoric mood Thought Process: linear/logical thought process Thought Content: + cognitive distortions Suicidal Thoughts: denies suicidal thoughts, denies suicidal plan and denies suicidal intent Homicidal Thoughts: denies homicidal thoughts, denies homicidal plan and denies homicidal intent Hallucinations: no auditory hallucinations and no visual hallucinations Cognition: recent memory grossly intact, remote memory grossly intact, attention grossly intact and language grossly intact Estimated Intelligence: + above average estimated intelligence Insight: + limited insight Judgment: + fair judgement Vital Signs (Past 24 Hours) Last Vital Signs Temp 36.6 C 08/23/23 06:29 Pulse 66 08/23/23 06:29 Resp 16 08/23/23 06:29 BP 91/61 L 08/23/23 06:29 Pulse Ox 99 08/19/23 11:06 O2 Del Method Room Air 08/19/23 11:06 Principal Diagnosis Borderline Personality disorder. Psychiatric Data See daily stay summary. In short, safety was maintained and the patient was cooperative with care. Medication changes included lowering of her dose of lamotrigine and discontinuing her Klonopin. She tolerated this well. I spoke to her family by phone on two occasions and her roommate was also contacted. All of them area aware of the safety plan that was completed prior to discharge. Day of Discharge Assessment Today the patient voices readiness for discharge. At the time of discharge she noted improvement in mood and deny thoughts to harm self or others. Thoughts remain organized and they are improved from admission. There is no evidence of psychosis. They agree to take medications as prescribed and keep follow-up appointments. They are stable for discharge to outpatient level of care. She understands that treatment for borderline personality disorder is primarily therapy and best when conducted by therapists who know how to target the problems of emotional self regulation. Transition of Care Transition Of Care Record: was reviewed with the patient Advance Directives Advance Directives Information Provided: Yes Advance Directives: No Mental Health Advance Directive: No Advance Directives on File: No Living Will: No Power of Water Project Manager: No Advance Directives Reason:: Declines as Mental Health Visit. Suicide Risk Level Suicide Risk Level Comments: Patient cut herself while she was intoxicated. At the time of the interview, she denied suicidal ideation and contracted for safety. Much of her cutting is not suicidal intent. Likely due to emotional lability. Risk Factors Assessment : Yes Do You Have Access To A Gun?: No (verify upon discharge) Mental Health Diagnoses: Yes Previous Attempt: Yes Protective Factors Assessment Employed: No Supportive Family: Yes Good Rapport with Provider: Yes Antipsychotic Medications Patient's medications have been reduced. Discharge Data Lab Results 08/19/23 08/19/23 08/19/23 03:39 04:23 05:10 WBC 7.28 RBC 4.49 Hgb 14.3 Hct 43.5 MCV 96.9 MCH 31.8 MCHC 32.9 RDW Std Deviation 41.5 RDW Coeff of Brigitte 11.6 Plt Count 314 MPV 10.7 Immature Gran % (Auto) 0.1 Neut % (Auto) 37.7 Lymph % (Auto) 50.8 [place] % (Auto) 5.5 Eos % (Auto) 5.1 Baso % (Auto) 0.8 Neut # (Auto) 2.74 Lymph # (Auto) 3.70 H [place] # (Auto) 0.40 Eos # (Auto) 0.37 Baso # (Auto) 0.06 Immature Gran # (Auto) 0.01 RBC Morphology Unremarkable Sodium 141 Potassium 4.1 Chloride 109 H Carbon Dioxide 23 Anion Gap 9 BUN 12 Creatinine 0.89 Est Cr Clr Drug Dosing 92.5 Est GFR ( Amer) 106.6 Est GFR (Non-Af Amer) 92.0 BUN/Creatinine Ratio 13.5 Glucose 98 Calcium 9.2 Total Bilirubin 0.4 AST 21 ALT 15 Alkaline Phosphatase 71 Total Protein 7.5 Albumin 5.0 Globulin 2.5 Albumin/Globulin Ratio 2.0 TSH 3.936 Urine Color Yellow Urine Appearance Clear Urine pH 5.5 Ur Specific [place] 1.010 Urine Protein Negative Urine Glucose (UA) Negative Urine Ketones Negative Urine Blood Negative Urine Nitrite Negative Urine Bilirubin Negative Urine Urobilinogen Negative Ur Leukocyte Esterase Negative Urine WBC (Auto) Urine RBC (Auto) U Hyaline Cast (Auto) U Epithel Cells (Auto) Urine Bacteria (Auto) Urine Test Negative Salicylates < 3.0 L Urine Opiates Screen Neg Ur Methadone, Qual Neg Acetaminophen < 3 L Urine Barbiturates Neg Ur Phencyclidine (PCP) Neg U Amphetamin/Meth Scrn Neg MDMA (Ecstasy) Screen Neg U Benzodiazepines Scrn Neg Whigham Ur Cocaine Metabolite Neg U Marijuana (THC) Screen Neg Ethyl Alcohol mg/dL 226.0 H SARS-CoV-2, RNA, NAAT NEGATIVE 08/19/23 08/21/23 07:53 10:39 WBC RBC Hgb Hct MCV MCH MCHC RDW Std Deviation RDW Coeff of Brigitte Plt Count MPV Immature Gran % (Auto) Neut % (Auto) Lymph % (Auto) [place] % (Auto) Eos % (Auto) Baso % (Auto) Neut # (Auto) Lymph # (Auto) [place] # (Auto) Eos # (Auto) Baso # (Auto) Immature Gran # (Auto) RBC Morphology Sodium Potassium Chloride Carbon Dioxide Anion Gap BUN Creatinine Est Cr Clr Drug Dosing Est GFR ( Amer) Est GFR (Non-Af Amer) BUN/Creatinine Ratio Glucose Calcium Total Bilirubin AST ALT Alkaline Phosphatase Total Protein Albumin Globulin Albumin/Globulin Ratio TSH Urine Color Yellow Urine Appearance Turbid A Urine pH 7.0 Ur Specific [place] 1.013 Urine Protein 2+ H Urine Glucose (UA) Negative Urine Ketones Negative Urine Blood 3+ H Urine Nitrite Positive A Urine Bilirubin Negative Urine Urobilinogen Negative Ur Leukocyte Esterase 3+ H Urine WBC (Auto) >30 H Urine RBC (Auto) 10-30 H U Hyaline Cast (Auto) 1-5 U Epithel Cells (Auto) >30 H Urine Bacteria (Auto) 4+ H Urine Test Salicylates Urine Opiates Screen Ur Methadone, Qual Acetaminophen Urine Barbiturates Ur Phencyclidine (PCP) U Amphetamin/Meth Scrn MDMA (Ecstasy) Screen U Benzodiazepines Scrn Whigham 0.2 L Ur Cocaine Metabolite U Marijuana (THC) Screen Ethyl Alcohol mg/dL SARS-CoV-2, RNA, NAAT Hospital Course (1) Depression with suicidal ideation: Patient's Whigham dose was maintained and her Lamictal was decreased to 100 po daily. I suspect she was not taking them prior to admission. She also stated that they don't particularly help. Throughout her stay it became apparent that her distress is due to Borderline personality disorder rather than Bipolar disorder. I spoke to the patient about her binge drinking: this is very dangerous, she drove drunk, and it appears to be correlated with her cutting so she should be abstinent from alcohol and other substances. The patient's mother heard from a friend that the patient may have been addicted to Xanax and was later prescribed Klonopin and was misusing it: She should not be prescribed benzodiazepines. (2) Borderline personality disorder: Groups and milieu therapy targeted at dealing with emotional lability. Plan 08/23/23 Patient is stable and euthymic. At the time of discharge she denied suicidal ideation or thoughts of self harn. She is stable for discharge to follow up with a safety plan and outpatient treatment for borderline personality disorder. 08/22/23 With patient's written permission, I spoke to her mother today and she is very supportive of her daughter. She says she will come to be here with her daughter. I later spoke to the patient and she indicated that she might rescind her permission for us to talk to her mother. The patient continues to be labile and manipulative. When she gets her way, she is pleasant and cooperative but when she is challenged her behavior becomes difficult. Admit to inpatient unit for stabilization and treatment. Encourage participation in all milieu. Particularly focus treatment on her Borderline Personality disorder and controlling her emotional lability in a positive manner. After further consideration I have maintained her medications at their current doses. She appears to be doing very well and she states her triggers are school and her parents. Mental Health & Subst Abuse Tx Psychiatrist Name of Psychiatrist: Meghann De Jesus Psychiatrist's Psychiatric Appointment Comment: Please resume your normally scheduled telehealth appointments. Psychiatrist Release of Information: Obtained, Reviewed and Signed Therapist Name of Therapist: Rancho Aguilar, PhD Therapist's Date of Therapist Appointment: 08/24/23 Time of Therapist Appointment: 3:00pm Therapy Appointment Comment: via telehealth Therapist Release of Information: Obtained, Reviewed and Signed Investor Relations Director Name of Investor Relations Director: [facility] Phone Number for Investor Relations Director: [phone] Date of Appointment with Investor Relations Director: 08/25/23 Time of Appointment with Investor Relations Director: 1:00 PM Case Management Appointment Comment: [address] [place] [id number] Post Discharge Appointments Primary Care Physician Name Of Family Doctor/PCP: [facility] Time of Appointment with PCP: [place] [address] Provider Appointment Comment: Please call to schedule follow-up appointment. Primary Care Release of Information: Obtained, Reviewed and Signed Other #1: Name of Aftercare Appointment: [facility] Phone Number of Aftercare Appointment: [phone] Time of Aftercare Appointment: A referral was faxed. Aftercare Appointment Comment: Please call to schedule intake appointment. Release of Information Aftercare Appointment: Obtained, Reviewed and Signed Contact Information Discharge Discharge [address]: [address] [place] [id number] Discharge Plan Discharge Items Patient Disposition: Home - Self-Care Reason For Visit: CUT TO THE WRIST Discharge Diagnosis: Borderline Personality disorder Activity: Resume your previous activity Non-emergency contact: Primary Care Provider Call non-emergency contact if: you have any medication questions [facility]Referrals[facility] [Primary Care Provider] - Diet: Regular Addtl Attending Provider Instructions: SPECIAL CARE INSTRUCTIONS: 1. Follow through with your scheduled aftercare appointments. If unable to keep an appointment, please call to reschedule. 2. Take your medication only as prescribed. Medication should not be changed or stopped without the approval of your doctor. In the event of worsening symptoms or concerns about side effects, contact your doctor immediately. 3. Utilize new healthy coping skills, anger management skills, and stress management skills learned during your hospitalization. Journal feelings and process them with a support person. Identify stressors or situations that may result in relapse, deterioration or inappropriate behaviors and develop a plan to deal with those issues. 4. If your coping skills are ineffective and you are in crisis, contact your outpatient providers for direction. If unable to reach your providers, please call the [facility] CRISIS LINE AT , go to the [facility] walk-in center at [address] [place] [address] [facility], or go to the closest Emergency Room. 5. Avoid alcohol and un-prescribed drugs. 6. You have been provided with the Mental Health Advance Directives Pamphlet for your review. 7. Your condition is stable for discharge to outpatient level of care, but recovery is an ongoing process. Ifthoughts to harm yourself or others return, follow the safety plan developed during your stay. Planning for a safe return home includes securing weapons. Our treatment team recommends weaponsbe removed from the home until your outpatient provider reassesses your progress. In rare cases where the items themselvescannot be removed, guns and ammunitionshould be secured separatelyand keys stored by a reliable personoutside of the home. If you were admitted on an involuntary commitment, the police or other legal authorities may be involved in this process. AFTERCARE APPOINTMENTS: * Please call your insurance company prior to your scheduled appointment to confirm your aftercare providers are covered. Take your insurance information to your appointments. WHO TO CALL AND WHEN: Medical Emergencies: For questions or emergencies related to your hospital stay, please contact the Inpatient Behavioral Health Unit at [phone]. A credit or loans officer is on-call 02/01 for the Behavioral Health Unit for emergencies At any time you feel your situation is an emergency, you may also call 911 immediately. Pending Studies at Discharge: No Stand-Alone Forms: My [facility], Smoking Cessation Medications and DC Order Prescriptions: New sulfamethoxazole-trimethoprim [Bactrim DS] 800-160 mg Tablet 1 tab PO Q12 Qty: 3 0RF lithium carbonate 300 mg Tablet 600 mg PO QPM Qty: 30 0RF lamotrigine 100 mg Tablet 100 mg PO QAM Qty: 30 0RF Continued Kyleena 17.5 mcg/24 hrs (5 yrs) 19.5 mg Intrauterine Device 17.5 mcg INTRAUTERINE CONTINOUS Discontinued lamotrigine 150 mg tablet 150 mg PO QAM lithium carbonate 600 mg PO QPM clonazepam 0.5 mg PO 1XD PRN (Reason: Anxiety) Adderall XR 25 mg PO QAM Discharge Orders: Discharge Order (Routine); Ordered 08/23/23 Ordered By: Hope Yen Admission Data Admit Date/Time: 08/19/23 09:58 Attending Provider: Hope Yen Admit Provider: Hope Yen Primary Care Provider: [facility] Other Interventions: PSY Interdisciplinary Discharge Planning Last Done: 08/23/23 15:05 [place] [address] D/C day mgmt > 30 min Patient Type Established Diagnoses Depression with suicidal ideation F32.A; R45.851 Borderline personality disorder F60.3 Time Spent (min) 35
[2023-08-23 15:24] VITALS: BP 102/68; PULSE 76
== END 2023-08-23 16:25 | disposition home or self-care (01) | DRG 883 ==
LOC: ED 03:26 → 3S 09:58
DX: X78.9XXA Intentional self-harm by unspecified sharp object, initial encounter; S51.812A Laceration without foreign body of left forearm, initial encounter; R45.851 Suicidal ideations; F60.3 Borderline personality disorder; Z62.810 Personal history of physical and sexual abuse in childhood; Z11.52 Encounter for screening for COVID-19; Z79.899 Other long term (current) drug therapy; F32.A Depression, unspecified; Z91.52 Personal history of nonsuicidal self-harm; F17.290 Nicotine dependence, other tobacco product, uncomplicated